=== PATIENT | female | born 1970 | race Caucasian/White ===

== ENCOUNTER 2018-01-07 22:17 | Emergency (ER) | payer MEDICARE ==
--- NOTE | 2018-01-07 23:04 | ERPHSYRPT ---
- History of Present Illness Time Seen by Provider: 01/07/18 22:58 Source: patient Exam Limitations: no limitations Patient Subjective Stated Complaint: pt has been falling lately, fell today, Triage Nursing Assessment: pt A&O x3, pt states that she has been falling lately and has fallen again today, stated that she is losing her balance, no difficulties with strength, lungs clear, pulses normal, vitals wnl, PERRL, orthostatics normal, no wounds, doesn't appear to be in any distress Physician History: 47-year-old morbidly obese white female with history of asthma, pulmonary embolism, anxiety, depression, DVT of the right leg, morbid obesity arrives with complaints of fell at home proximally 15 minutes prior to arrival patient states that she was moving some clothes and fell backwards she states she did not hit her head or lose consciousness. Patient's states that she has been losing her balance lately and falling Patient has pain in bilateral upper arms Patient denies any chest pain denies any other injury she is not short of breath She denies any neck pain Past medical history includes asthma, pulmonary embolism, hypothyroidism, anxiety, depression, DVT right leg, morbid obesity Past surgical history includes , left kidney removed, D&C 2 Patient states she has had menopause and denies Timing/Duration: today (fell just prior to arrival patient's states that she's had frequent falls over the last month) Severity: mild Modifying Factors: Improves With: nothing Associated Symptoms: other (frequent falls, bilateral arm pain), No nausea, No vomiting, No abdominal pain, No shortness of breath, No heartburn, No diaphoresis, No cough, No chills, No chest pain, No fever, No headaches, No loss of appetite, No malaise, No rash, No syncope, No seizure, No weakness Allergies/Adverse Reactions: codeine Allergy (Mild, Verified 08/08/15 18:12) Penicillins Allergy (Verified 01/07/18 22:56) Home Medications: Alprazolam 0.5 mg [xanAX 0.5 MG] 0.5 mg PO QID 03/31/13 [History] Albuterol Sulfate [Albuterol Sulfate Hfa] 2 puff IH QID 05/18/15 [History] Budesonide/Formoterol Fumarate [Symbicort 160-4.5 Mcg Inhaler] 2 puff IH BID 07/22 [History] Ipratropium/Albuterol Sulfate [Combivent Inhaler] 1 puff IH QID 05/18/15 [ History] Levothyroxine Sodium 50 Mcg [Synthroid 50 Mcg] 50 mcg PO DAILY 05/18/15 [ History] PARoxetine HCl [Paroxetine HCl] 40 mg PO DAILY 05/18/15 [History] Simvastatin 5 mg PO HS 05/18/15 [History] Solifenacin Succinate [Vesicare] 5 mg PO DAILY 05/18/15 [History] Fenofibrate,Micronized 145 mg* [Tricor 145 MG] 54 mg PO DAILY 08/08/15 [ History] Folic Acid 20 mg PO DAILY 08/08/15 [History] Multivit with Calcium,Iron,Min [Womens Multiple Vitamins] 1 each PO DAILY [History] Hx Tetanus, Diphtheria Vaccination/Date Given: Yes Hx Influenza Vaccination/Date Given: Yes Hx Pneumococcal Vaccination/Date Given: No - Review of Systems Constitutional: No Fever, No Chills Eyes: No Symptoms Ears, Nose, & Throat: No Symptoms Respiratory: No Cough, No Dyspnea Cardiac: No Chest Pain, No Edema, No Syncope Abdominal/Gastrointestinal: No Abdominal Pain, No Nausea, No Vomiting, No Diarrhea Genitourinary Symptoms: No Dysuria Musculoskeletal: Other (bilateral upper arm pain) Skin: No Rash Neurological: Dizziness (patient told the patient's nurse she was dizzy prior to falling.), Other (frequent falls for one month), No Focal Weakness, No Gait Changes, No Headache, No Irritability, No Lethargy, No Paralysis, No Parasthesia , No Seizure, No Sensory Changes, No Speech Changes, No Tics, No Tremors, No Vertigo Psychological: Alcohol Abuse Endocrine: No Symptoms All Other Systems: Reviewed and Negative - Past Medical History Pertinent Past Medical History: Yes Neurological History: No Pertinent History ENT History: No Pertinent History Cardiac History: Deep Vein Thrombosis, High Cholesterol Respiratory History: Asthma Endocrine Medical History: Diabetes Type II Musculoskeletal History: Arthritis GI Medical History: No Pertinent History History: Other Psycho-Social History: Anxiety, Depression Female Reproductive Disorders: No Pertinent History Other Medical History: 2003 L kidney removed. History of blood clots, notes present one in one of her legs. History of PE. 2L O2. - Past Surgical History Past Surgical History: Yes Neuro Surgical History: No Pertinent History Cardiac: No Pertinent History Respiratory: No Pertinent History Gastrointestinal: No Pertinent History Genitourinary: Other Musculoskeletal: No Pertinent History Female Surgical History: Section, Other Other Surgical History: LEFT KIDNEY REMOVAL-2004, D/C x 2 - Social History Smoking Status: Never smoker Exposure to second hand smoke: Yes Drug Use: none Patient Lives Alone: No - Female History Hx Last Menstrual Period: 13 years Hx Now: No (menopause) - Nursing Vital Signs Nursing Vital Signs: Initial Vital Signs Temperature 98.1 F 01/07/18 22:36 Pulse Rate 75 01/07/18 22:36 Blood Pressure 147/66 01/07/18 22:36 O2 Sat by Pulse Oximetry 94 L 01/07/18 22:36 Pain Scale Pain Intensity 5 - Physical Exam General Appearance: no apparent distress, alert Eye Exam: PERRL/EOMI, eyes nml inspection Ears, Nose, Throat Exam: normal ENT inspection, TMs normal, pharynx normal, moist mucous membranes Neck Exam: normal inspection, non-tender, supple, full range of motion Respiratory Exam: normal breath sounds, lungs clear, No respiratory distress Cardiovascular Exam: regular rate/rhythm, normal heart sounds, normal peripheral pulses Gastrointestinal/Abdomen Exam: soft, normal bowel sounds, No tenderness, No mass Back Exam: normal inspection, normal range of motion, No CVA tenderness, No vertebral tenderness Extremity Exam: normal inspection, normal range of motion, pelvis stable, other (full range of motion to all extremitie oceanographic meteorologist equal and symmetrical 5 over 5) Neurologic Exam: alert, oriented x 3, cooperative, normal mood/affect, nml cerebellar function, nml station & gait, sensation nml, other (patient alert, oriented 3, normal finger to nose, oceanographic meteorologist equal and symmetrical 5 over 5 no facial droop speech normal GCS 15,no pronator drift, sensation intact to all extremities cranial nerves II through XII int), No motor deficits, No sensory deficit, No disoriented, No confusion, No uncooperative, No intoxicated appearance, No depressed mood/affect, No motor weakness, No facial droop, No slurred speech, No aphasia, No abnormal cerebellar tests, No abnormal 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-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 SpO2 Interpretation: normal (94%) SpO2: 94 - Course Nursing assessment & vital signs reviewed: Yes EKG Interpreted by Me: RATE (68 bpm), Sinus Rhythm, NORMAL AXIS, Other (EKG: Normal sinus rhythm, 68 beats per minute, normal axis, no acute ST or T wave changes) - Radiology Exams Left Humerus X-ray Interpretation: Interpreted by me, Negative, No Fracture, No Subluxation Right Humerus X-ray Interpretation: Interpreted by me, Negative, No Fracture, No Subluxation - CT Exams Head CT Interpretation: Negative, Tele-radiologist Report (no acute findings) Ordered Tests: Active Orders 24 hr Category Date Time Status EKG-ER Only STAT Care 01/07/18 22:55 Active IV Insertion STAT Care 01/07/18 22:55 Active HEAD WITHOUT CONTRAST [CT] Stat Exams 01/07/18 22:56 Taken HUMERUS Stat Exams 01/07/18 23:08 Taken HUMERUS Stat Exams 01/07/18 23:08 Taken AMYLASE Stat Lab 01/07/18 00:05 Completed CBC W DIFF Stat Lab 01/07/18 00:05 Completed CMP Stat Lab 01/07/18 00:05 Completed LIPASE Stat Lab 01/07/18 00:05 Completed TROPONIN Q3H Lab 01/07/18 00:05 Completed TROPONIN Q3H Lab 01/08/18 02:00 Ordered TROPONIN Q3H Lab 01/08/18 05:00 Ordered TROPONIN Q3H Lab 01/08/18 08:00 Ordered TROPONIN Q3H Lab 01/08/18 11:00 Ordered Lab/Rad Data: Laboratory Result Diagrams 01/07/18 00:05 01/07/18 00:05 Laboratory Results 01/07/18 01/07/18 01/07/18 Range/Units 00:05 00:05 00:05 WBC 7.5 (4.0-10.5) K/mm3 RBC 3.89 L (4.1-5.4) M/mm3 Hgb 11.7 L (12.0-16.0) gm/dl Hct 36.8 (35-47) % MCV 94.6 (78-100) fl MCH 30.0 (26-32) pg MCHC 31.8 L (32-36) g/dl RDW 14.0 (11.5-14.0) % Plt Count 189 (150-450) K/mm3 MPV 11.3 H (6-9.5) fl Gran % 62.6 (36.0-66.0) % Eos # (Auto) 0.14 (0-0.5) Absolute Lymphs (auto) 1.91 (1.0-4.6) Absolute Monos (auto) 0.76 (0.0-1.3) Lymphocytes % 25.3 (24.0-44.0) % Monocytes % 10.1 (0.0-12.0) % Eosinophils % 1.9 (0.00-5.0) % Basophils % 0.1 (0.0-0.4) % Absolute Granulocytes 4.72 (1.4-6.9) Basophils # 0.01 (0-0.4) Sodium 143 (137-145) mmol/L Potassium 4.3 (3.5-5.1) mmol/L Chloride 100 (98-107) mmol/L Carbon Dioxide 32 H (22-30) mmol/L Anion Gap 15.9 H (5-15) MEQ/L BUN 21 H (7-17) mg/dL Creatinine 1.00 (0.52-1.04) mg/dL Estimated GFR > 60.0 ML/MIN Glucose 119 H (74-106) mg/dL Calcium 9.7 (8.4-10.2) mg/dL Total Bilirubin 0.30 (0.2-1.3) mg/dL AST 26 (14-36) U/L ALT 24 (0-35) U/L Alkaline Phosphatase 74 (38-126) U/L Troponin I < 0.012 (0.000-0.034) ng/mL Serum Total Protein 7.7 (6.3-8.2) g/dL Albumin 4.2 (3.5-5.0) g/dL Amylase 48 (30-110) U/L Lipase 177 (23-300) U/L - Progress Progress: improved Progress Note: 01/07/18 23:04 This is a 47-year-old morbidly obese white female with history of asthma, pulmonary embolism, hypothyroidism, anxiety, depression with a history of DVT of right leg. Patient arrives with complaint of bilateral arm pain after falling at home patient states this occurred just prior to arrival she states she lost her balance and fell backwards while moving closing she denies any loss of consciousness she denies hitting her head. Both order both state that she's been falling frequently over the last month. She has bilateral arm pain she has no chest pain shortness of breath she denies any other injuries. She has a completely normal neurological workup. Patient denies any neck pain. On physical examination patient was essentially normal workup with the exception of being morbidly obese HEENT within normal limits lungs are clear heart is regular abdomen soft nontender nondistended positive bowel sounds extremities full range of motion pulse equal symmetrical 2 over 4 neuro cranial nerves II through XII are intact DTRs symmetrical 2 over 4 [place] Coma Scale is 15 sensation intact to all extremities. Patient does complain of bilateral arm pain however I find no focal findings. Because of the patient's history of a falling frequently over the last month or so will go ahead and obtain CT of the patient's head she does have a history of DVT in the past Will go ahead and get EKG CBC CMP troponin on this patient. Will go ahead and obtain x-ray of the patient's bilateral humerus. . 01/08/18 00:50 Patient's labs are essentially normal with the exception of a anion gap of 15.9 and a BUN of 21 EKG is normal head CT is normal x-ray bilateral humerus are normal Troponin is within normal limits. Patient states she still has some pain on her arms. Will give her one Maysel tablet. I'm reluctant to give the patient continuing Maysel because she is on Xanax at home and fearful of interaction I have recommended Tylenol she states "that never works". Will give patient one Maysel tablet orally here in the emergency room patient is to return home rest. I have offered repeat troponin on this patient she does not want to stay and have this done.. . . - Departure Time of Disposition: 00:51 Departure Disposition: Home Clinical Impression: recent frequent falls, Bilateral arm pain Accidental fall Qualifiers: Encounter type: initial encounter Qualified Code(s): W19.XXXA - Unspecified fall, initial encounter Condition: Fair Critical Care Time: No Referrals: EDUARDO CORRAL [Primary Care Provider] - Instructions: Preventing Falls Additional Instructions: Return home. Plenty of fluids. Medications as prescribed by your family doctor. Follow-up with your family doctor call in the morning and make an appointment for recheck. Return for acute distress or for severe symptoms. Tylenol every 4 hours as needed for pain.
[2018-01-08 00:15] LABS: BASOPHIL % 0.1 % (0.0-0.4); Basophil (Absolute #) 0.01 (0-0.4); Eosinophil % 1.9 % (0.00-5.0); Eosinophil (Absolute #) 0.14 (0-0.5); Granulocyte Absolute (ANC) 4.72 (1.4-6.9); Granulocytes % 62.6 % (36.0-66.0); Hematocrit 36.8 % (35-47); Hemoglobin 11.7 gm/dl (12.0-16.0); Lymphocyte (Absolute #) 1.91 (1.0-4.6); Lymphocytes % 25.3 % (24.0-44.0); Mean Cell Volume 94.6 fl (78-100); Mean Corpuscular Hgb Concent. 31.8 g/dl (32-36); Mean Platelet Volume 11.3 fl (6-9.5); Monocyte (Absolute #) 0.76 (0.0-1.3); Monocytes % 10.1 % (0.0-12.0); Platelet Count 189 K/mm3 (150-450); Red Blood Count 3.89 M/mm3 (4.1-5.4); White Blood Count 7.5 K/mm3 (4.0-10.5)
[2018-01-08 00:31] LABS: ALBUMIN 4.2 g/dL (3.5-5.0); ALKALINE PHOSPHATASE 74 U/L (38-126); AMYLASE 48 U/L (30-110); ANION GAP 15.9 MEQ/L (5-15); BLOOD UREA NITROGEN 21 mg/dL (7-17); CHLORIDE 100 mmol/L (98-107); Calcium 9.7 mg/dL (8.4-10.2); Carbon Dioxide 32 mmol/L (22-30); Glucose 119 mg/dL (74-106); LIPASE 177 U/L (23-300); Potassium 4.3 mmol/L (3.5-5.1); SGOT/AST 26 U/L (14-36); SGPT/ALT 24 U/L (0-35); SODIUM 143 mmol/L (137-145); Total Protein 7.7 g/dL (6.3-8.2)
[2018-01-08] MEDS: NORCO 5/325 MG PO ONE (01:00)
[2018-01-08] MEDS ORDERED: NORCO 5/325 MG ONE (01:00)
[2018-01-08 01:01] VITALS: BP 148/67; PULSE 76; O2SAT 96
--- NOTE | 2018-01-08 08:41 | XRAY ---
Indication: Pain following fall. Multiple contiguous axial images obtained through the head without contrast. Comparison: October 21, 2016. Again normal appearing brain parenchyma, ventricles, and bony calvarium. Visualized paranasal sinuses and mastoid air cells are clear. Impression: Stable normal CT head without contrast exam. Comment: Preliminary interpretation was made by [facility]. No discrepancy. CT DI 50.14
--- NOTE | 2018-01-08 08:43 | XRAY ---
Indication: Pain following fall. Comparison: None 2 views of the left humerus demonstrates minimal AC degenerative arthropathy. No other bony, articular, or soft tissue abnormalities.
--- NOTE | 2018-01-08 08:43 | XRAY ---
Indication: Pain following fall. Comparison: None 2 views of the right humerus demonstrates mild AC and moderate glenohumeral degenerative arthropathy. No other bony, articular, or soft tissue abnormalities.
== END 2018-01-08 01:27 | disposition home or self-care (01) ==
LOC: ED 22:17
DX: M79.602 Pain in left arm (principal); M79.601 Pain in right arm; R42 Dizziness and giddiness; W19.XXXA Unspecified fall, initial encounter; Z91.81 History of falling; Z79.899 Other long term (current) drug therapy; Z86.711 Personal history of pulmonary embolism
CPT/HCPCS: 36000; 36415; 70450; 73060; 80053; 82150; 83690; 84484; 85025; 93005; 99284; A9270-GY

== ENCOUNTER 2019-04-15 14:27 | Emergency (ER) | payer MEDICARE ==
[2019-04-15 14:41] LABS: A-aADO2 60; ABG HEMOGLOBIN 10.1; ABG POTASSIUM 3.5 (3.5-5.1); ABG SITE RIGHT RADIAL; ALLEN TEST OK? YES; ARTERIAL BLOOD GAS BASE EXCESS 5.6 (-2.0-2.0); ARTERIAL BLOOD GAS FIO2 28 %; ARTERIAL BLOOD GAS PCO2 33 mmHg (35-45); ARTERIAL BLOOD GAS PO2 98 mmHg (75-100); ARTERIAL BLOOD GAS pH 7.54 (7.35-7.45); CARBOXYHEMOGLOBIN 1.8 % THgb (0.0-6.9); HCO3- 28.2 (22-28); HGB O2 SAT 96.4 g/dF (94-100); Methhemoglobin 0.8 % (1.4-1.5); paO2 pAO1 0.62
--- NOTE | 2019-04-15 14:54 | ERPHSYRPT ---
- History of Present Illness Time Seen by Provider: 04/15/19 14:42 Source: patient, EMS Exam Limitations: no limitations Patient Subjective Stated Complaint: Pt states "I have had trouble breathing for past week or so." Triage Nursing Assessment: Pt presented via [facility] and placed in room 7. PT alert and oriented X 3, skin pwd. Pt speakin in two to 3 word sentences. PT has had previous stroke and her speech was delayed with gasping for breath after 3 to 4 words. Physician History: 49-year-old white female arrives with complaint of shortness of breath x2 weeks no chest pain no fevers. Patient given albuterol and duo neb treatment prior to arrival. Past medical history includes CVA, DVT, hyperlipidemia, asthma, old chart shows diabetes type 2 patient denies this, arthritis, anxiety, depression, left kidney removed, blood clots in her legs, pulmonary embolism Past surgical history includes , left kidney removed, D&C Timing/Duration: week(s) (22 weeks) Activities at Onset: none Severity of Dyspnea-Max: moderate Severity of Dyspnea-Current: moderate Possible Cause: occasional episodes Modifying Factors: Improves With: nothing Associated Symptoms: constant, cough, wheezing, No intermittent, No anxiety, No chest pain/discomfort, No edema, No fever, No insomnia, No loss of appetite, No lightheadedness, No weakness, No ankle swelling, No chills, No hemoptysis, No calf pain, No dizziness, No heaviness, No heart racing, No lightheadedness, No leg swelling, No muscle spasms feet, No muscle spasms hands, No painful breathing, No productive cough, No sweating, No tightness, No tingling face International travel in last 2 weeks: No Allergies/Adverse Reactions: tramadol Allergy (Severe, Verified 04/15/19 14:37) Rash codeine Allergy (Mild, Verified 08/08/15 18:12) Penicillins Allergy (Verified 01/07/18 22:56) Home Medications: Alprazolam 0.5 mg [xanAX 0.5 MG] 0.5 mg PO QID 03/31/13 [History] Albuterol Sulfate [Albuterol Sulfate Hfa] 2 puff IH QID 05/18/15 [History] Budesonide/Formoterol Fumarate [Symbicort 160-4.5 Mcg Inhaler] 2 puff IH BID 07/22 [History] Ipratropium/Albuterol Sulfate [Combivent Inhaler] 1 puff IH QID 05/18/15 [ History] Levothyroxine Sodium 50 Mcg [Synthroid 50 Mcg] 50 mcg PO DAILY 05/18/15 [ History] PARoxetine HCl [Paroxetine HCl] 40 mg PO DAILY 05/18/15 [History] Simvastatin 5 mg PO HS 05/18/15 [History] Solifenacin Succinate [Vesicare] 5 mg PO DAILY 05/18/15 [History] Fenofibrate,Micronized 145 mg* [Tricor 145 MG] 54 mg PO DAILY 08/08/15 [ History] Folic Acid 20 mg PO DAILY 08/08/15 [History] Multivit with Calcium,Iron,Min [Womens Multiple Vitamins] 1 each PO DAILY [History] Hx Tetanus, Diphtheria Vaccination/Date Given: Yes Hx Influenza Vaccination/Date Given: Yes Hx Pneumococcal Vaccination/Date Given: Yes Immunizations Up to Date: Yes - Review of Systems Constitutional: No Fever, No Chills Eyes: No Symptoms Ears, Nose, & Throat: No Symptoms Respiratory: Cough, Dyspnea, Wheezing Cardiac: No Chest Pain, No Edema, No Syncope Abdominal/Gastrointestinal: No Abdominal Pain, No Nausea, No Vomiting, No Diarrhea Genitourinary Symptoms: No Dysuria Musculoskeletal: No Back Pain, No Neck Pain Skin: No Rash Neurological: No Dizziness, No Focal Weakness, No Sensory Changes Psychological: No Symptoms Endocrine: No Symptoms All Other Systems: Reviewed and Negative - Past Medical History Pertinent Past Medical History: Yes Neurological History: No Pertinent History ENT History: No Pertinent History Cardiac History: Deep Vein Thrombosis, High Cholesterol Respiratory History: Asthma Endocrine Medical History: Diabetes Type II Musculoskeletal History: Arthritis GI Medical History: No Pertinent History History: Other Psycho-Social History: Anxiety, Depression Female Reproductive Disorders: No Pertinent History Other Medical History: 2003 L kidney removed. History of blood clots, notes present one in one of her legs. History of PE. 2L O2. - Past Surgical History Past Surgical History: Yes Neuro Surgical History: No Pertinent History Cardiac: No Pertinent History Respiratory: No Pertinent History Gastrointestinal: No Pertinent History Genitourinary: Other Musculoskeletal: No Pertinent History Female Surgical History: Section, Other Other Surgical History: LEFT KIDNEY REMOVAL-2004, D/C x 2 - Social History Smoking Status: Never smoker Exposure to second hand smoke: Yes Drug Use: none Patient Lives Alone: No - Female History Hx Last Menstrual Period: menopause Hx Now: No - Nursing Vital Signs Nursing Vital Signs: Initial Vital Signs Temperature 98.2 F 04/15/19 14:28 Pulse Rate 115 H 04/15/19 14:28 Respiratory Rate 26 H 04/15/19 14:28 Blood Pressure 156/102 04/15/19 14:28 O2 Sat by Pulse Oximetry 99 04/15/19 14:28 Pain Scale Pain Intensity 0 and in - Physical Exam General Appearance: mild distress, alert Eye Exam: PERRL/EOMI Ears, Nose, Throat Exam: No normal ENT inspection, No normal pharynx, No abnormal TM (R), No abnormal TM (L) Neck Exam: normal inspection, supple Respiratory Exam: diminished breath sounds Cardiovascular/Chest Exam: normal heart sounds, regular rate/rhythm Abdominal/Gastrointestinal Exam: soft, No tenderness, No distention, No mass Extremity Exam: non-tender, normal range of motion, normal inspection, no calf tenderness, no pedal edema Peripheral Pulses Exam: dorsalis-pedis (R): 2+, dorsalis-pedis (L): 2+ Neurologic Exam: alert, oriented x 3, cooperative, 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 II-XII nml as tested, sensation nml, No motor deficits Skin Exam: normal color, warm, No dry SpO2 Interpretation: normal (97%) SpO2: 97 - Course Nursing assessment & vital signs reviewed: Yes EKG Interpreted by Me: RATE (100 bpm), NORMAL AXIS, Other (EKG: Sinus rhythm, 100 beats per minute, normal axis, no acute ST or T wave changes noted) - Radiology Exams Chest X-ray Interpretation: Discussed w/ radiologist (chest x-ray: Under inflated nonacute chest) Ordered Tests: Active Orders 24 hr Category Date Time Status EKG-ER Only STAT Care 04/15/19 14:49 Active Pulse Oximetry (ED) STAT Care 04/15/19 14:46 Active CHEST 1 VIEW (PORTABLE) Stat Exams 04/15/19 14:47 Completed ABG [ARTERIAL BLOOD GASES] Stat Lab 04/15/19 14:31 Completed BLOOD CULTURE Stat Lab 04/15/19 15:45 Received CBC W DIFF Stat Lab 04/15/19 15:00 Completed CMP Stat Lab 04/15/19 15:00 Completed D-DIMER QUANTITATION Stat Lab 04/15/19 15:00 Completed HCG QUALITATIVE,SERUM Stat Lab 04/15/19 15:00 Completed NT PRO BNP Stat Lab 04/15/19 15:00 Completed PROTIME WITH INR Stat Lab 04/15/19 15:00 Completed PTT Stat Lab 04/15/19 15:00 Completed TROPONIN Q3H Lab 04/15/19 15:00 Completed TROPONIN Q3H Lab 04/15/19 18:00 Ordered TROPONIN Q3H Lab 04/15/19 21:00 Ordered TROPONIN Q3H Lab 04/16/19 00:00 Ordered TROPONIN Q3H Lab 04/16/19 03:00 Ordered Medication Summary Discontinued Medications Generic Name Dose Route Start Last Admin Trade Name Freq PRN Reason Stop Dose Admin Azithromycin 500 mg 04/15/19 18:18 04/15/19 18:22 Zithromax 250 Mg Tablet PO 04/15/19 18:19 500 mg STAT ONE Administration Azithromycin Confirm 04/15/19 18:20 Zithromax 250 Mg Tablet Administered 04/15/19 18:21 Dose 500 mg .ROUTE .STK-MED ONE Bacitracin Zinc 0.9 gm 04/15/19 17:30 04/15/19 17:35 Baciguent Packet TP 04/15/19 17:31 Not Given STAT ONE Methylprednisolone Sodium Succinate 125 mg 04/15/19 18:18 04/15/19 18:22 Solu-Medrol 125 Mg IV 04/15/19 18:19 125 mg STAT ONE Administration Methylprednisolone Sodium Succinate Confirm 04/15/19 18:20 Solu-Medrol 125 Mg Administered 04/15/19 18:21 Dose 125 mg .ROUTE .STK-MED ONE Lab/Rad Data: Laboratory Result Diagrams 04/15/19 15:00 04/15/19 15:00 Laboratory Results 04/15/19 04/15/19 04/15/19 Range/Units 15:00 15:00 15:00 WBC (4.0-10.5) K/mm3 RBC (4.1-5.4) M/mm3 Hgb (12.0-16.0) gm/dl Hct (35-47) % MCV (78-100) fl MCH (26-32) pg MCHC (32-36) g/dl RDW (11.5-14.0) % Plt Count (150-450) K/mm3 MPV (6-9.5) fl Gran % (36.0-66.0) % Eos # (Auto) (0-0.5) Absolute Lymphs (auto) (1.0-4.6) Absolute Monos (auto) (0.0-1.3) Lymphocytes % (24.0-44.0) % Monocytes % (0.0-12.0) % Eosinophils % (0.00-5.0) % Basophils % (0.0-0.4) % Absolute Granulocytes (1.4-6.9) Basophils # (0-0.4) PT 19.0 H (9.95-12.35) SECONDS INR 1.66 (0.8-3.0) APTT 37.9 H (25.3-37.0) SECONDS D-Dimer 881 H* (215-500) ng/mL Puncture Site pCO2 (35-45) mmHg pO2 (75-100) mmHg Base Excess (-2.0-2.0) O2 Saturation (94-100) g/dF ABG pH (7.35-7.45) ABG HCO3 (22-28) ABG O2 Sat (Measured) (95-100) % Pete Test A-a Gradient a/A Ratio Hemoglobin Carboxyhemoglobin (0.0-6.9) % THgb Methemoglobin (1.4-1.5) % Potassium (3.5-5.1) Temperature C POC O2 Flow Rate % Sodium (137-145) mmol/L Chloride (98-107) mmol/L Carbon Dioxide (22-30) mmol/L Anion Gap (5-15) MEQ/L BUN (7-17) mg/dL Creatinine (0.52-1.04) mg/dL Estimated GFR ML/MIN Glucose (74-106) mg/dL Calcium (8.4-10.2) mg/dL Total Bilirubin (0.2-1.3) mg/dL AST (14-36) U/L ALT (0-35) U/L Alkaline Phosphatase (38-126) U/L Troponin I 0.017 (0.000-0.034) ng/mL NT-Pro-B Natriuret Pep (0-900) pg/mL Serum Total Protein (6.3-8.2) g/dL Albumin (3.5-5.0) g/dL Serum , Qual NEGATIVE (Negative) 04/15/19 04/15/19 04/15/19 Range/Units 15:00 15:00 14:31 WBC 6.3 (4.0-10.5) K/mm3 RBC 3.20 L (4.1-5.4) M/mm3 Hgb 9.7 L (12.0-16.0) gm/dl Hct 32.3 L (35-47) % MCV 100.9 H (78-100) fl MCH 30.3 (26-32) pg MCHC 30.0 L (32-36) g/dl RDW 13.8 (11.5-14.0) % Plt Count 117 L (150-450) K/mm3 MPV 11.9 H (6-9.5) fl Gran % 69.1 H (36.0-66.0) % Eos # (Auto) 0.18 (0-0.5) Absolute Lymphs (auto) 1.15 (1.0-4.6) Absolute Monos (auto) 0.60 (0.0-1.3) Lymphocytes % 18.3 L (24.0-44.0) % Monocytes % 9.5 (0.0-12.0) % Eosinophils % 2.9 (0.00-5.0) % Basophils % 0.2 (0.0-0.4) % Absolute Granulocytes 4.36 (1.4-6.9) Basophils # 0.01 (0-0.4) PT (9.95-12.35) SECONDS INR (0.8-3.0) APTT (25.3-37.0) SECONDS D-Dimer (215-500) ng/mL Puncture Site RIGHT RADIAL pCO2 33 L (35-45) mmHg pO2 98 (75-100) mmHg Base Excess 5.6 H (-2.0-2.0) O2 Saturation 96.4 (94-100) g/dF ABG pH 7.54 H (7.35-7.45) ABG HCO3 28.2 H (22-28) ABG O2 Sat (Measured) 99.0 (95-100) % Pete Test YES A-a Gradient 60 a/A Ratio 0.62 Hemoglobin 10.1 Carboxyhemoglobin 1.8 (0.0-6.9) % THgb Methemoglobin 0.8 L (1.4-1.5) % Potassium 3.7 3.5 (3.5-5.1) Temperature 37.0 C POC O2 Flow Rate 28 % Sodium 147 H (137-145) mmol/L Chloride 107 (98-107) mmol/L Carbon Dioxide 30 (22-30) mmol/L Anion Gap 12.9 (5-15) MEQ/L BUN 12 (7-17) mg/dL Creatinine 1.03 (0.52-1.04) mg/dL Estimated GFR > 60.0 ML/MIN Glucose 108 H (74-106) mg/dL Calcium 9.6 (8.4-10.2) mg/dL Total Bilirubin 0.60 (0.2-1.3) mg/dL AST 26 (14-36) U/L ALT 15 (0-35) U/L Alkaline Phosphatase 61 (38-126) U/L Troponin I (0.000-0.034) ng/mL NT-Pro-B Natriuret Pep 1990 H (0-900) pg/mL Serum Total Protein 7.8 (6.3-8.2) g/dL Albumin 4.2 (3.5-5.0) g/dL Serum , Qual (Negative) - Progress Progress: improved Air Movement: fair Progress Note: 04/15/19 18:18 Patient better after receiving a DuoNeb and albuterol treatments per medics she is in no acute distress patient with normal ABGs. Patient with mild elevation of BNP however chest x-ray shows no evidence of failure patient's chest x-ray no acute. Disease process Patient's EKG sinus rhythm 100 beats per minute normal axis no acute ST or T wave changes. Patient with a essentially normal chemistry and CBC white cells 6.3 hemoglobin 9.7 hematocrit 32.3 Unfortunately patient's d-dimer was 8[address] I had considered ordering CT in this patient's chest however patient does not show signs of pulmonary embolism and she only has one kidney./ She has a good oxygenation, good ABGs good EKG normal looking chest she's not having chest pain. I've discussed the case with Dr. Morrissey optical fabrication technician for Dr. Meaghan Corral. Will go ahead and give patient Solu-Medrol 125 mg orally will give patient Zithromax 500 mg and sent home with 250 per day for 4 days. Will insure that patient has an inhaler at home. Patient to followup with Dr. Corral. - Departure Departure Disposition: Home Clinical Impression: Shortness of breath Asthma with exacerbation Qualifiers: Asthma severity: moderate Asthma persistence: unspecified Qualified Code(s): J45.901 - Unspecified asthma with (acute) exacerbation Condition: Fair Critical Care Time: No Referrals: EDUARDO CORRAL [Primary Care Provider] - Instructions: Asthma, Adult (DC) Additional Instructions: Return home. Plenty of fluids. Zithromax 250 mg orally daily for 4 days. Prednisone taper as prescribed. Followup with Dr. Corral. Return for acute distress or for severe symptoms. Prescriptions: Azithromycin 250 mg [Zithromax 250 MG TABLET] 250 mg PO DAILY #4 tablet
--- NOTE | 2019-04-15 15:12 | XRAY ---
Indication: Chest pain and short of breath. Comparison: May 18, 2015. Portable chest underinflated without focal infiltrate, consolidation, or large effusion. Heart upper limits normal for AP portable technique. Bony thorax intact. Impression: Again nonacute underinflated chest.
[2019-04-15 15:44] LABS: INR 1.66 (0.8-3.0)
[2019-04-15 15:47] LABS: PTT 37.9 SECONDS (25.3-37.0)
[2019-04-15 15:48] LABS: BASOPHIL % 0.2 % (0.0-0.4); Basophil (Absolute #) 0.01 (0-0.4); Eosinophil % 2.9 % (0.00-5.0); Eosinophil (Absolute #) 0.18 (0-0.5); Granulocyte Absolute (ANC) 4.36 (1.4-6.9); Granulocytes % 69.1 % (36.0-66.0); Hematocrit 32.3 % (35-47); Hemoglobin 9.7 gm/dl (12.0-16.0); Lymphocyte (Absolute #) 1.15 (1.0-4.6); Lymphocytes % 18.3 % (24.0-44.0); Mean Cell Volume 100.9 fl (78-100); Mean Corpuscular Hemoglobin 30.3 pg (26-32); Mean Platelet Volume 11.9 fl (6-9.5); Monocytes % 9.5 % (0.0-12.0); Platelet Count 117 K/mm3 (150-450); Red Cell Distribution Width 13.8 % (11.5-14.0); White Blood Count 6.3 K/mm3 (4.0-10.5)
[2019-04-15 15:58] LABS: ALBUMIN 4.2 g/dL (3.5-5.0); ALKALINE PHOSPHATASE 61 U/L (38-126); ANION GAP 12.9 MEQ/L (5-15); BLOOD UREA NITROGEN 12 mg/dL (7-17); CHLORIDE 107 mmol/L (98-107); Calcium 9.6 mg/dL (8.4-10.2); Carbon Dioxide 30 mmol/L (22-30); Creatinine 1 1.03 mg/dL (0.52-1.04); Glucose 108 mg/dL (74-106); NT PRO BNP 1990 pg/mL (0-900); Potassium 3.7 mmol/L (3.5-5.1); SGOT/AST 26 U/L (14-36); SGPT/ALT 15 U/L (0-35); SODIUM 147 mmol/L (137-145); Total Protein 7.8 g/dL (6.3-8.2)
[2019-04-15] MEDS ORDERED: BACIGUENT PACKET TP ONE (17:30)
[2019-04-15 17:57] VITALS: BP 100/80; PULSE 101
[2019-04-15 18:05] VITALS: O2SAT 97
[2019-04-15] MEDS ORDERED: Zithromax 250 MG TABLET PO ONE (18:18)
[2019-04-15] MEDS ORDERED: solu-MEDROL 125 MG IV ONE (18:18)
[2019-04-15] MEDS ORDERED: Zithromax 250 MG TABLET ONE (18:20)
[2019-04-15] MEDS ORDERED: solu-MEDROL 125 MG ONE (18:20)
== END 2019-04-15 18:36 | disposition home or self-care (01) ==
LOC: ED 14:27
DX: R06.02 Shortness of breath (principal); J45.901 Unspecified asthma with (acute) exacerbation
CPT/HCPCS: 36000; 36415; 36600; 71045; 80053; 81025; 82375; 82803; 83880; 84484; 85025; 85379; 85610; 85730; 87040; 93005; 94760; 96374; 99284; J2930; A9270-GY

== ENCOUNTER 2022-06-21 20:51 | Observation (INO) | payer MEDICARE ==
[2022-06-21] MEDS ORDERED: FEVERALL 650 MG PR ONE (21:14)
[2022-06-21] MEDS ORDERED: FEVERALL 650 MG ONE (21:18)
[2022-06-21] MEDS ORDERED: DUONEB 0.5-3 MG/3 ml Neb IH ONE ×2 (21:27→21:33)
[2022-06-21] MEDS ORDERED: solu-MEDROL 125 MG, Sterile H2O 10 ml 2 ML IV ONE ×2 (21:27)
[2022-06-21] MEDS ORDERED: Zofran 4 MG/2 ML VIAL IV ONE (21:29)
[2022-06-21] MEDS ORDERED: PROTONIX 40 MG IV IV ONE ×2 (21:30→21:45)
[2022-06-21 21:36] LABS: INFLUENZA A NEGATIVE (NEGATIVE); INFLUENZA B NEGATIVE (NEGATIVE); RESPIRATORY SYNCTIAL VIRUS NEGATIVE (Negative); SARS-CoV-2 Xpert Express NEGATIVE (NEGATIVE)
[2022-06-21 21:41] LABS: Absolute Neutrophil Ct (ANC) 10.68 x10^3/uL (1.4-6.9); Basophil (Absolute #) 0.03 x10^3/uL (0-0.4); Eosinophil % 0.2 % (0.00-5.0); Eosinophil (Absolute #) 0.02 x10^3/uL (0-0.5); Hematocrit 41.7 % (35-47); Lymphocyte (Absolute #) 0.76 x10^3/uL (1.0-4.6); Mean Cell Volume 98.3 fL (78-100); Mean Corpuscular Hemoglobin 30.7 pg (26-32); Mean Corpuscular Hgb Concent. 31.2 g/dL (32-36); Mean Platelet Volume 11.9 fL (7.5-11.0); Monocyte (Absolute #) 1.04 x10^3/uL (0.0-1.3); Monocytes % 8.2 % (0.0-12.0); Neutrophil % 84.5 % (36.0-66.0); Platelet Count 123 x10^3/uL (150-450); Red Blood Count 4.24 x10^6/uL (4.1-5.4); Red Cell Distribution Width 11.9 % (11.5-14.0); White Blood Count 12.7 x10^3/uL (4.0-10.5)
[2022-06-21] MEDS ORDERED: Zofran 4 MG/2 ML VIAL ONE (21:45)
[2022-06-21] MEDS ORDERED: solu-MEDROL ONE (21:45)
[2022-06-21] MEDS ORDERED: Sterile H2O 10 ml IJ ONE (21:45)
[2022-06-21 21:54] LABS: ALKALINE PHOSPHATASE 101 U/L (38-126); ANION GAP 15.6 MEQ/L (5-15); BLOOD UREA NITROGEN 17 mg/dL (7-17); CHLORIDE 97 mmol/L (98-107); Carbon Dioxide 32 mmol/L (22-30); EST GLOMERULAR FILTRATION RATE > 60.0 ML/MIN; Glucose 84 mg/dL (74-106); MAGNESIUM 1.5 mg/dL (1.6-2.3); NT PRO BNP 207 pg/mL (0-900); SGOT/AST 17 U/L (14-36); SGPT/ALT 13 U/L (0-35); SODIUM 140 mmol/L (137-145); Total Protein 7.5 g/dL (6.3-8.2)
--- NOTE | 2022-06-21 21:57 | ERPHSYRPT ---
- History of Present Illness Time Seen by Provider: 06/21/22 20:54 Source: patient, family, EMS, skilled nursing records Exam Limitations: clinical condition Patient Subjective Stated Complaint: according to [facility], pt has been having fever, and loss of appetite, pt has been on bactrim since yesterday for tooth decay. Triage Nursing Assessment: pt is non verbal, fever of 102.2 axillary, pt has history of cva. moher is present now to answer questions Physician History: 52 years old female with history of CVA with left-sided residual weakness, aphasia, COPD, dysphagia, congestive heart failure, bedridden on Eliquis presented in the ER with decreased oral intake for last couple of days, cough with some difficulty breathing and fever with a T-max of 102. This has been going on for the last couple of days. Patient is not a good historian and history is limited, obtained mainly from skilled nursing record, EMS and patient's mom. Timing/Duration: day(s) (2), gradual onset, worse Fever Severity: moderate Associated Symptoms: cough, shortness of breath, sore throat, weakness Allergies/Adverse Reactions: tramadol Allergy (Severe, Verified 04/15/19 14:37) Rash codeine Allergy (Mild, Verified 08/08/15 18:12) Penicillins Allergy (Verified 01/07/18 22:56) trazodone Allergy (Verified 06/21/22 21:09) Home Medications: Ipratropium/Albuterol Sulfate [Combivent Inhaler] 1 puff IH QID 05/18/15 [History] Levothyroxine Sodium 50 Mcg [Synthroid 50 Mcg] 50 mcg PO DAILY 05/18/15 [History] Simvastatin 5 mg PO HS 05/18/15 [History] Multivit with Calcium,Iron,Min [Womens Multiple Vitamins] 1 each PO DAILY 08/08/15 [History] Allopurinol 100 mg [Zyloprim 100 mg] 100 mg PO DAILY 06/21/22 [History] Cyclobenzaprine HCl 10 mg [Cyclobenzaprine 10 MG] 10 mg PO DAILY 06/21/22 [History] Fluticasone/Salmeterol 230/21 [Advair Hfa 230/21 Mcg COMMON CANISTER*] 2 puff IH DAILY 06/21/22 [History] Furosemide 20 mg [Lasix 20 mg] 20 mg PO DAILY 06/21/22 [History] Metoprolol Tartrate 25 mg [Lopressor 25MG Tab] 25 mg PO DAILY 06/21/22 [History] Pregabalin [Lyrica 150Mg] 150 mg PO DAILY 06/21/22 [History] Sertraline HCl 50 mg [Zoloft 50 mg Tablet] 50 mg PO DAILY 06/21/22 [History] Spironolactone 25 mg [Aldactone 25 MG] 25 mg PO DAILY 06/21/22 [History] Sulfamethoxazole/Trimethoprim [Bactrim Ds Tablet] 1 tab PO BID 06/21/22 [Histo ry] Hx Tetanus, Diphtheria Vaccination/Date Given: Yes Hx Influenza Vaccination/Date Given: Yes Hx Pneumococcal Vaccination/Date Given: Yes Travel Risk - International Travel Have you traveled outside of the country in past 3 weeks: No - Coronavirus Screening Are you exhibiting any of the following symptoms?: No - Vaccine Status Have you recieved a Covid-19 vaccination: Yes [employer]: [employer] - Vaccination Dates Date of 2cond Vaccination (if applicable): unknown - Review of Systems All Other Systems: Unable due to condition - Past Medical History Pertinent Past Medical History: Yes Neurological History: No Pertinent History ENT History: No Pertinent History Cardiac History: Deep Vein Thrombosis, High Cholesterol Respiratory History: Asthma Endocrine Medical History: Diabetes Type II Musculoskeletal History: Arthritis GI Medical History: No Pertinent History History: Other Psycho-Social History: Anxiety, Depression Female Reproductive Disorders: No Pertinent History Other Medical History: 2003 L kidney removed. History of blood clots, notes pr esent one in one of her legs. History of PE. 2L O2. - Past Surgical History Past Surgical History: Yes Neuro Surgical History: No Pertinent History Cardiac: No Pertinent History Respiratory: No Pertinent History Gastrointestinal: No Pertinent History Genitourinary: Other Musculoskeletal: No Pertinent History Female Surgical History: Section, Other Other Surgical History: LEFT KIDNEY REMOVAL-2004, D/C x 2 - Social History Smoking Status: Never smoker Exposure to second hand smoke: Yes Drug Use: none Patient Lives Alone: No - Nursing Vital Signs Nursing Vital Signs: Initial Vital Signs Temperature 102.2 F 06/21/22 20:53 Pulse Rate 102 H 06/21/22 20:53 Respiratory Rate 22 06/21/22 20:53 Blood Pressure 152/83 06/21/22 20:53 O2 Sat by Pulse Oximetry 98 06/21/22 20:53 Pain Scale Pain Intensity 0 - Physical Exam General Appearance: no apparent distress, alert Eye Exam: PERRL/EOMI ENT Exam: pharyngeal erythema Neck Exam: normal inspection, non-tender, supple, full range of motion Respiratory Exam: decreased breath sounds, decreased air movement Cardiovascular/Chest Exam: normal heart sounds, regular rate/rhythm Gastrointestinal/Abdominal Exam: soft, non tender, No no distention Extremity Exam: non-tender, normal inspection, No normal range of motion Neurologic Exam: alert, motor deficits (Left-sided weakness), No housekeeping coordinator II-XII nml as tested, No normal mood/affect, No sensation nml Skin Exam: normal color SpO2 Interpretation: borderline oxygenation SpO2: 98 O2 Delivery: Nasal Cannula (2 L) - Course EKG Interpreted by Me: RATE ([id number]), Sinus Tach, Left [place] Deviation, NORMAL INTERVALS, Q-wave (Anterolateral Q waves), Non-specific ST Changes Ordered Tests: Active Orders 24 hr Category Date Time Status Glazier Supervisor STAT Care 06/21/22 21:27 Active EKG-ER Only STAT Care 06/21/22 21:27 Active IV Insertion STAT Care 06/21/22 21:27 Active Oxygen-ED Only Nasal Cannula 2 lpm Care 06/21/22 21:27 Active CHEST 1 VIEW (PORTABLE) Stat Exams 06/21/22 21:27 Taken HEAD WITHOUT CONTRAST [CT] Stat Exams 06/21/22 23:54 Taken BLOOD CULTURE Stat Lab 06/21/22 21:27 Ordered CBC W DIFF Stat Lab 06/21/22 21:35 Completed CMP Stat Lab 06/21/22 21:35 Completed CULTURE,URINE Stat Lab 06/21/22 22:03 Received Lactic Acid Stat Lab 06/21/22 21:30 Completed MAGNESIUM Stat Lab 06/21/22 21:35 Completed NT PRO BNP Stat Lab 06/21/22 21:35 Completed PROCALCITONIN Stat Lab 06/21/22 21:55 Completed TROPONIN Q4H Lab 06/21/22 21:41 Completed TROPONIN Q4H Lab 06/22/22 01:30 Ordered TROPONIN Q4H Lab 06/22/22 05:30 Ordered UA W/RFX CULTURE Stat Lab 06/21/22 22:03 Completed Respiratory Therapy Assessment DAILY RT 06/21/22 21:35 Active Medication Summary Generic Name Dose Route Start Last Admin Trade Name Kendell PRN Reason Stop Dose Admin Magnesium Sulfate/Dextrose 100 mls @ 200 mls/hr 06/22/22 01:13 06/22/22 01:24 Magnesium 1 Gm / 100 Ml D5w IV 06/22/22 01:42 200 mls/hr STAT ONE Administration Discontinued Medications Generic Name Dose Route Start Last Admin Trade Name Kendell PRN Reason Stop Dose Admin Acetaminophen 975 mg 06/21/22 21:14 06/21/22 21:19 Acetaminophen 650 Mg Supp.Rect VA 06/21/22 21:15 975 mg STAT ONE Administration Acetaminophen Confirm 06/21/22 21:18 Acetaminophen 650 Mg Supp.Rect Administered 06/21/22 21:19 Dose 1,300 mg .ROUTE .STK-MED ONE Albuterol/Ipratropium 3 ml 06/21/22 21:27 06/21/22 21:46 Ipratropium/Albuterol Sulfate 3 Ml Ampul.Neb IH 06/21/22 21:28 3 ml STAT ONE Administration Albuterol/Ipratropium Confirm 06/21/22 21:33 Ipratropium/Albuterol Sulfate 3 Ml Ampul.Neb Administered 06/21/22 21:34 Dose 3 ml IH .STK-MED ONE Methylprednisolone Sodium 0 mg 06/21/22 21:27 06/21/22 21:47 Succinate 125 mg/ Sterile IV 06/21/22 21:28 125 mg Water 2 ml STAT ONE Administration Sodium Chloride 500 mls @ 500 mls/hr 06/21/22 22:34 06/22/22 00:55 Sodium Chloride 0.9% 500 Ml IV 06/21/22 23:33 Infused .Q1H ONE Infusion Sodium Chloride Confirm 06/21/22 22:36 Sodium Chloride 0.9% 500 Ml Administered 06/21/22 22:37 Dose 500 mls @ ud IV .STK-MED ONE Levofloxacin/Dextrose 750 mg in 150 mls @ 100 mls/hr 06/21/22 22:46 06/22/22 00:55 Levofloxacin 750mg/150ml D5w IV 06/22/22 00:15 Infused STAT STA Infusion Levofloxacin/Dextrose Confirm 06/21/22 23:03 Levofloxacin 750mg/150ml D5w Administered 06/21/22 23:04 Dose 750 mg in 150 mls @ ud IV .STK-MED ONE Magnesium Sulfate/Dextrose Confirm 06/22/22 01:23 Magnesium 1 Gm / 100 Ml D5w Administered 06/22/22 01:24 Dose 100 mls @ ud IV .STK-MED ONE Methylprednisolone Sodium Succinate Confirm 06/21/22 21:45 Methylprednis Sod Succ 125 Mg/2 Ml Vial Administered 06/21/22 21:46 Dose 125 mg .ROUTE .STK-MED ONE Ondansetron HCl 4 mg 06/21/22 21:29 06/21/22 21:47 Ondansetron Hcl 4 Mg/2 Ml Vial IV 06/21/22 21:30 4 mg STAT ONE Administration Ondansetron HCl Confirm 06/21/22 21:45 Ondansetron Hcl 4 Mg/2 Ml Vial Administered 06/21/22 21:46 Dose 4 mg .ROUTE .STK-MED ONE Pantoprazole Sodium 40 mg 06/21/22 21:30 06/21/22 21:47 Pantoprazole 40 Mg Vial IV 06/21/22 21:31 40 mg STAT ONE Administration Pantoprazole Sodium Confirm 06/21/22 21:45 Pantoprazole 40 Mg Vial Administered 06/21/22 21:46 Dose 40 mg IV .STK-MED ONE Sterile Water Confirm 06/21/22 21:45 Water For Injection,Sterile 10 Ml Vial Administered 06/21/22 21:46 Dose 10 ml IJ .STK-MED ONE Lab/Rad Data: Laboratory Result Diagrams 06/21/22 21:35 06/21/22 21:35 Laboratory Results 06/21/22 06/21/22 06/21/22 Range/Units 22:03 21:55 21:41 WBC (4.0-10.5) x10^3/uL RBC (4.1-5.4) x10^6/uL Hgb (12.0-16.0) g/dL Hct (35-47) % MCV (78-100) fL MCH (26-32) pg MCHC (32-36) g/dL RDW (11.5-14.0) % Plt Count (150-450) x10^3/uL MPV (7.5-11.0) fL Gran % (36.0-66.0) % Immature Gran % (Auto) (0.00-0.4) % Nucleat RBC Rel Count (0.00-0.1) % Eos # (Auto) (0-0.5) x10^3/uL Immature Gran # (Auto) (0.00-0.03) x10^3u/L Absolute Lymphs (auto) (1.0-4.6) x10^3/uL Absolute Monos (auto) (0.0-1.3) x10^3/uL Absolute Nucleated RBC (0.00-0.01) x10^3u/L Lymphocytes % (24.0-44.0) % Monocytes % (0.0-12.0) % Eosinophils % (0.00-5.0) % Basophils % (0.0-0.4) % Absolute Granulocytes (1.4-6.9) x10^3/uL Basophils # (0-0.4) x10^3/uL Sodium (137-145) mmol/L Potassium (3.5-5.1) mmol/L Chloride (98-107) mmol/L Carbon Dioxide (22-30) mmol/L Anion Gap (5-15) MEQ/L BUN (7-17) mg/dL Creatinine (0.52-1.04) mg/dL Estimated GFR ML/MIN Glucose (74-106) mg/dL Lactic Acid (0.4-2.0) Calcium (8.4-10.2) mg/dL Magnesium (1.6-2.3) mg/dL Total Bilirubin (0.2-1.3) mg/dL AST (14-36) U/L ALT (0-35) U/L Alkaline Phosphatase (38-126) U/L Troponin I 0.015 (0.000-0.034) ng/mL NT-Pro-B Natriuret Pep (0-900) pg/mL Serum Total Protein (6.3-8.2) g/dL Albumin (3.5-5.0) g/dL Procalcitonin 0.458 H (0.030-0.080) ng/mL Urinalys Dipstick Clnc MAIN LAB Urine Color YELLOW (YELLOW) Urine Appearance CLEAR (CLEAR) Urine pH 5.5 (5-6) Ur Specific Victor 1.025 (1.005-1.025) POC Urine Protein Conf 30 (Negative) Urine Ketones SMALL-15 (NEGATIVE) Urine Nitrite POSITIVE (NEGATIVE) Urine Bilirubin MODERATE (NEGATIVE) Urine Urobilinogen 1 (0-1) mg/dL Urine Leukocytes SMALL (NEGATIVE) Urine WBC (Auto) 16-25 (0-5) /HPF Urine RBC (Auto) 0-2 (0-2) /HPF U Epithel Cells (Auto) RARE (FEW) /HPF Urine Bacteria (Auto) RARE (NEGATIVE) /HPF Urine RBC TRACE-INTACT (0-5) Rd/ul Ur Culture Indicated? YES Urine Glucose NEGATIVE (NEGATIVE) mg/dL Influenza Type A Ag (NEGATIVE) Influenza Type B Ag (NEGATIVE) RSV (PCR) (Negative) SARS-CoV-2 (PCR) (NEGATIVE) Group A Strep Antibody (NEGATIVE) 06/21/22 06/21/22 06/21/22 Range/Units 21:35 21:35 21:30 WBC 12.7 H (4.0-10.5) x10^3/uL RBC 4.24 (4.1-5.4) x10^6/uL Hgb 13.0 (12.0-16.0) g/dL Hct 41.7 (35-47) % MCV 98.3 (78-100) fL MCH 30.7 (26-32) pg MCHC 31.2 L (32-36) g/dL RDW 11.9 (11.5-14.0) % Plt Count 123 L (150-450) x10^3/uL MPV 11.9 H (7.5-11.0) fL Gran % 84.5 H (36.0-66.0) % Immature Gran % (Auto) 0.9 H (0.00-0.4) % Nucleat RBC Rel Count 0.0 (0.00-0.1) % Eos # (Auto) 0.02 (0-0.5) x10^3/uL Immature Gran # (Auto) 0.12 H (0.00-0.03) x10^3u/L Absolute Lymphs (auto) 0.76 L (1.0-4.6) x10^3/uL Absolute Monos (auto) 1.04 (0.0-1.3) x10^3/uL Absolute Nucleated RBC 0.00 (0.00-0.01) x10^3u/L Lymphocytes % 6.0 L (24.0-44.0) % Monocytes % 8.2 (0.0-12.0) % Eosinophils % 0.2 (0.00-5.0) % Basophils % 0.2 (0.0-0.4) % Absolute Granulocytes 10.68 H (1.4-6.9) x10^3/uL Basophils # 0.03 (0-0.4) x10^3/uL Sodium 140 (137-145) mmol/L Potassium 4.0 (3.5-5.1) mmol/L Chloride 97 L (98-107) mmol/L Carbon Dioxide 32 H (22-30) mmol/L Anion Gap 15.6 H (5-15) MEQ/L BUN 17 (7-17) mg/dL Creatinine 0.80 (0.52-1.04) mg/dL Estimated GFR > 60.0 ML/MIN Glucose 84 (74-106) mg/dL Lactic Acid 1.4 (0.4-2.0) Calcium 9.0 (8.4-10.2) mg/dL Magnesium 1.5 L (1.6-2.3) mg/dL Total Bilirubin 1.30 (0.2-1.3) mg/dL AST 17 (14-36) U/L ALT 13 (0-35) U/L Alkaline Phosphatase 101 (38-126) U/L Troponin I (0.000-0.034) ng/mL NT-Pro-B Natriuret Pep 207 (0-900) pg/mL Serum Total Protein 7.5 (6.3-8.2) g/dL Albumin 4.0 (3.5-5.0) g/dL Procalcitonin (0.030-0.080) ng/mL Urinalys Dipstick Clnc Urine Color (YELLOW) Urine Appearance (CLEAR) Urine pH (5-6) Ur Specific Victor (1.005-1.025) POC Urine Protein Conf (Negative) Urine Ketones (NEGATIVE) Urine Nitrite (NEGATIVE) Urine Bilirubin (NEGATIVE) Urine Urobilinogen (0-1) mg/dL Urine Leukocytes (NEGATIVE) Urine WBC (Auto) (0-5) /HPF Urine RBC (Auto) (0-2) /HPF U Epithel Cells (Auto) (FEW) /HPF Urine Bacteria (Auto) (NEGATIVE) /HPF Urine RBC (0-5) Rd/ul Ur Culture Indicated? Urine Glucose (NEGATIVE) mg/dL Influenza Type A Ag (NEGATIVE) Influenza Type B Ag (NEGATIVE) RSV (PCR) (Negative) SARS-CoV-2 (PCR) (NEGATIVE) Group A Strep Antibody (NEGATIVE) 06/21/22 06/21/22 Range/Units 21:17 20:58 WBC (4.0-10.5) x10^3/uL RBC (4.1-5.4) x10^6/uL Hgb (12.0-16.0) g/dL Hct (35-47) % MCV (78-100) fL MCH (26-32) pg MCHC (32-36) g/dL RDW (11.5-14.0) % Plt Count (150-450) x10^3/uL MPV (7.5-11.0) fL Gran % (36.0-66.0) % Immature Gran % (Auto) (0.00-0.4) % Nucleat RBC Rel Count (0.00-0.1) % Eos # (Auto) (0-0.5) x10^3/uL Immature Gran # (Auto) (0.00-0.03) x10^3u/L Absolute Lymphs (auto) (1.0-4.6) x10^3/uL Absolute Monos (auto) (0.0-1.3) x10^3/uL Absolute Nucleated RBC (0.00-0.01) x10^3u/L Lymphocytes % (24.0-44.0) % Monocytes % (0.0-12.0) % Eosinophils % (0.00-5.0) % Basophils % (0.0-0.4) % Absolute Granulocytes (1.4-6.9) x10^3/uL Basophils # (0-0.4) x10^3/uL Sodium (137-145) mmol/L Potassium (3.5-5.1) mmol/L Chloride (98-107) mmol/L Carbon Dioxide (22-30) mmol/L Anion Gap (5-15) MEQ/L BUN (7-17) mg/dL Creatinine (0.52-1.04) mg/dL Estimated GFR ML/MIN Glucose (74-106) mg/dL Lactic Acid (0.4-2.0) Calcium (8.4-10.2) mg/dL Magnesium (1.6-2.3) mg/dL Total Bilirubin (0.2-1.3) mg/dL AST (14-36) U/L ALT (0-35) U/L Alkaline Phosphatase (38-126) U/L Troponin I (0.000-0.034) ng/mL NT-Pro-B Natriuret Pep (0-900) pg/mL Serum Total Protein (6.3-8.2) g/dL Albumin (3.5-5.0) g/dL Procalcitonin (0.030-0.080) ng/mL Urinalys Dipstick Clnc Urine Color (YELLOW) Urine Appearance (CLEAR) Urine pH (5-6) Ur Specific Victor (1.005-1.025) POC Urine Protein Conf (Negative) Urine Ketones (NEGATIVE) Urine Nitrite (NEGATIVE) Urine Bilirubin (NEGATIVE) Urine Urobilinogen (0-1) mg/dL Urine Leukocytes (NEGATIVE) Urine WBC (Auto) (0-5) /HPF Urine RBC (Auto) (0-2) /HPF U Epithel Cells (Auto) (FEW) /HPF Urine Bacteria (Auto) (NEGATIVE) /HPF Urine RBC (0-5) Rd/ul Ur Culture Indicated? Urine Glucose (NEGATIVE) mg/dL Influenza Type A Ag NEGATIVE (NEGATIVE) Influenza Type B Ag NEGATIVE (NEGATIVE) RSV (PCR) NEGATIVE (Negative) SARS-CoV-2 (PCR) NEGATIVE (NEGATIVE) Group A Strep Antibody NOT DETECTED (NEGATIVE) - Progress Progress: improved, re-examined Progress Note: 06/21/22 23:42 52 years old is evaluated for fever chills and not feeling well. Chest x-ray showed questionable infiltrate right middle lobe. She is given a dose of Levaquin. She does have UTI. Mildly low magnesium for which she will be getting replacement. Given Tylenol for symptomatic relief. Patient is feeling better on reevaluation. Discussed with Dr. Ott and patient is excepted for admission. 06/22/22 01:37 Patient mom later reported that she is complaining of some swelling around right side of head. On evaluation it was found that she has a hematoma. CT head without contrast is obtained and is negative for any intracranial findings but is scalp hematoma. Recommended ice and patient is being transferred to floor. Discussed with : Katerina Counseled pt/family regarding: lab results, diagnosis, need for follow-up, rad results - Departure Departure Disposition: Observation Clinical Impression: Sepsis secondary to UTI, Pneumonia, Scalp hematoma Condition: Stable Critical Care Time: No Referrals: EDUARDO CORRAL [ACTIVE STAFF] - Follow up/PCP as directed
[2022-06-21 22:10] LABS: Appearance CLEAR (CLEAR); Bilirubin MODERATE (NEGATIVE); Glucose NEGATIVE (NEGATIVE); Ketones SMALL-15 (NEGATIVE); Specific Gravity 1.025 (1.005-1.025)
[2022-06-21 22:11] LABS: Dipstick done @ ? MAIN LAB; Nitrite POSITIVE (NEGATIVE); Ph 5.5 (5-6); Protein,Urine Dip 30 (Negative); RBC TRACE-INTACT Ery/ul (0-5); Urobilinogen 1 mg/dL (0-1)
[2022-06-21 22:12] LABS: Bacteria RARE /HPF (NEGATIVE); Epithelial Cells RARE /HPF (FEW); RBC 0-2 /HPF (0-2); Urine Cultured Indicated? YES
[2022-06-21] MEDS ORDERED: Sodium Chloride 0.9% 500 ML 500 ML IV ONE ×2 (22:34→22:36)
[2022-06-21] MEDS ORDERED: LEVOFLOXACIN 750MG/150ML D5W 750 MG/150 ML BAG IV STA (22:46)
[2022-06-21] MEDS ORDERED: LEVOFLOXACIN 750MG/150ML D5W 750 MG/150 ML BAG IV ONE (23:03)
[2022-06-22] MEDS ORDERED: Magnesium 1 Gm / 100 Ml D5W*** 100 ML IV ONE ×2 (01:13→01:23)
[2022-06-22] MEDS ORDERED: HUMALOG SQ PRN (02:02)
[2022-06-22] MEDS ORDERED: DUONEB 0.5-3 MG/3 ml Neb IH SCH (02:02)
[2022-06-22] MEDS: solu-MEDROL 60 MG, Sterile H2O 10 ml 2 ML IV SCH ×10 (05:48→17:14)
[2022-06-22 06:11] LABS: Absolute Neutrophil Ct (ANC) 11.35 x10^3/uL (1.4-6.9); Basophil (Absolute #) 0.01 x10^3/uL (0-0.4); Eosinophil (Absolute #) 0 x10^3/uL (0-0.5); Hematocrit 36.2 % (35-47); Hemoglobin 11.4 g/dL (12.0-16.0); Lymphocyte (Absolute #) 0.28 x10^3/uL (1.0-4.6); Lymphocytes % 2.3 % (24.0-44.0); Mean Corpuscular Hemoglobin 30.2 pg (26-32); Mean Corpuscular Hgb Concent. 31.5 g/dL (32-36); Mean Platelet Volume 11.9 fL (7.5-11.0); Monocyte (Absolute #) 0.26 x10^3/uL (0.0-1.3); Monocytes % 2.2 % (0.0-12.0); Platelet Count 112 x10^3/uL (150-450); Red Blood Count 3.77 x10^6/uL (4.1-5.4); Red Cell Distribution Width 11.9 % (11.5-14.0); White Blood Count 12.1 x10^3/uL (4.0-10.5)
[2022-06-22] MEDS ORDERED: solu-MEDROL ONE ×2 (06:18→16:27)
[2022-06-22] MEDS ORDERED: Sterile H2O 10 ml IJ ONE (06:19)
[2022-06-22 06:50] LABS: ALBUMIN 3.7 g/dL (3.5-5.0); ALKALINE PHOSPHATASE 97 U/L (38-126); ANION GAP 14.1 MEQ/L (5-15); BLOOD UREA NITROGEN 17 mg/dL (7-17); CHLORIDE 99 mmol/L (98-107); Calcium 8.9 mg/dL (8.4-10.2); Carbon Dioxide 29 mmol/L (22-30); Creatinine 1 0.72 mg/dL (0.52-1.04); EST GLOMERULAR FILTRATION RATE > 60.0 ML/MIN; Glucose 143 mg/dL (74-106); Potassium 4.2 mmol/L (3.5-5.1); SGOT/AST 16 U/L (14-36); SGPT/ALT 13 U/L (0-35); SODIUM 138 mmol/L (137-145); Total Protein 7.4 g/dL (6.3-8.2)
--- NOTE | 2022-06-22 07:12 | XRAY ---
Indication: Short of breath. Comparison: April 15, 2019 Portable chest demonstrates new mild right perihilar airspace disease without consolidation/large effusion. Heart borderline enlarged. Bony thorax intact again with osteopenia and degenerative changes.
[2022-06-22] MEDS: DUONEB 0.5-3 MG/3 ml Neb IH SCH ×4 (07:24→18:59)
[2022-06-22] MEDS: Advair Hfa 230/21 Mcg COMMON CANISTER IH SCH ×2 (07:26→19:02)
--- NOTE | 2022-06-22 07:27 | XRAY ---
Indication: Pain. Possible fall. Multiple contiguous axial images obtained through the head without contrast. Comparison: January 07, 2018. Age-appropriate global atrophy. No acute intracranial hemorrhage, abnormal extra-axial fluid collection, or mass effect. Fourth ventricle is midline without hydrocephalus. New scalp hematoma near the vertex. Bony calvarium intact. Visualized paranasal sinuses and mastoid air cells are clear. Impression: Scalp hematoma. No underlying fracture or acute intracranial abnormalities. Comment: Preliminary interpretation made by [facility]. No critical discrepancy.
[2022-06-22 09:55] LABS: Slide Review 1 YES
[2022-06-22] MEDS ORDERED: NYSTOP 30 GM CREAM TP PRN ×2 (11:47→12:00)
[2022-06-22] MEDS: Docusate Sodium 100 MG PO SCH ×2 (12:11→20:22)
[2022-06-22] MEDS: Lopressor 25MG Tab PO SCH (12:11)
--- NOTE | 2022-06-22 12:11 | PCM.HP ---
History of Present Illness - Chief Complaint Chief Complaint: Sepsis secondary to UTI History of Present Illness: is a 52 year old female patient S/P CVA who resides at [facility] Patient is bedridden with residual left sided weakness and aphasia who develpoed cough, fever of 102 ,shortness of breath and decreased appetite. Patient was evaluated in ER and admitted to [facility] with Dg Urosepsis and pneumonia. Prolactin level is elevated at 0.458, WBC=12,700. There is concern for possible recurrent aspiratin. - Review of Systems Constitutional: Fever Eyes: No Symptoms Ears, Nose, & Throat: Nose Congestion Respiratory: Cough, Wheezing Cardiac: No Symptoms Abdominal/Gastrointestinal: No Symptoms Genitourinary Symptoms: No Symptoms, Incontinence Musculoskeletal: No Symptoms Neurological: Focal Weakness (since CVA nonambulatory) Psychological: No Symptoms Medications & Allergies Home Medications: Home Medication List Acetaminophen 325 mg [Tylenol 325 mg] 650 mg PO Q6H PRN 06/29/22 [History Confirmed 06/29/22] Acetaminophen 325 mg [Tylenol 325 mg] 650 mg PO Q6H PRN PRN 06/29/22 [History Confirmed 06/29/22] Allopurinol 100 mg [Zyloprim 100 mg] 100 mg PO DAILY 06/29/22 [History Confirmed 06/29/22] Apixaban [Eliquis 5 mg Tablet] 5 mg PO BID 06/29/22 [History Confirmed 06/29/22] Bisacodyl 10 mg [Dulcolax 10 MG SUPP] 10 mg RC Q24H PRN 06/29/22 [History Confirmed 06/29/22] Cyclobenzaprine HCl 10 mg [Cyclobenzaprine 10 MG] 10 mg PO HS 06/29/22 [History Confirmed 06/29/22] Fluticasone/Salmeterol [Advair Hfa 230-21 Mcg Inhaler] 2 puff IH DAILY 06/29/22 [History Confirmed 06/29/22] Furosemide 20 mg [Lasix 20 mg] 20 mg PO DAILY 06/29/22 [History Confirmed 06/29/22] Hydrocortisone 2.5% 30 gm [Anusol-Hc 2.5% Cream 30 gm] 30 gm TP BID 06/29/22 [History Confirmed 06/29/22] Hydrocortisone 2.5% 30 gm [Anusol-Hc 2.5% Cream 30 gm] 30 gm TP BID PRN PRN 06/29/22 [History Confirmed 06/29/22] Levothyroxine Sodium 50 Mcg [Synthroid 50 Mcg] 50 mcg PO DAILY 06/29/22 [History Confirmed 06/29/22] Metoprolol Tartrate 25 mg [Lopressor 25MG Tab] 25 mg PO BID 06/29/22 [History Confirmed 06/29/22] Multivitamin [Multivitamins] 1 each PO DAILY 06/29/22 [History Confirmed 06/29/22] Non-Formulary Drug [Non-Formulary Item] 1 each PO Q6H PRN PRN 06/29/22 [History Confirmed 06/29/22] Non-Formulary Drug [Non-Formulary Item] 1 each TOP TIDPRN PRN 06/29/22 [History Confirmed 06/29/22] Nystatin Cream 30 gm [Nystop 30 gm Cream] 30 gm TP Q8H PRN PRN 06/29/22 [History Confirmed 06/29/22] Pregabalin 50 mg [Lyrica 50MG] 150 mg PO DAILY 06/29/22 [History Confirmed 06/29/22] Sennosides/Docusate Sodium [Senna Plus 8.6-50 mg Softgel] 2 tab PO DAILY 06/29/22 [History Confirmed 06/29/22] Sertraline HCl 50 mg [Zoloft 50 mg Tablet] 50 mg PO HS 06/29/22 [History Confirmed 06/29/22] Simvastatin 10 mg [Zocor 10MG] 5 mg PO DAILY 06/29/22 [History Confirmed 06/29/22] Spironolactone 25 mg [Aldactone 25 MG] 25 mg PO DAILY 06/29/22 [History Confirmed 06/29/22] Ertapenem Sodium [Ertapenem] 1 gm IM DAILY 7 Days #7 07/02/22 [Rx] clindamycin HCL [Cleocin HCl] 300 mg PO QID #28 cap 07/02/22 [Rx] Allergies/Adverse Reactions: Allergies Allergy/AdvReac Type Severity Reaction Status Date / Time codeine Allergy Mild Verified 06/29/22 14:53 Penicillins Allergy Verified 06/29/22 14:53 trazodone Allergy Verified 06/29/22 14:53 - Past Medical History Past Medical History: Yes Neurological History: No Pertinent History ENT History: No Pertinent History Cardiac History: Deep Vein Thrombosis, High Cholesterol Respiratory History: Asthma Endocrine Medical History: Diabetes Type II Musculoskelatal History: Arthritis GI Medical History: No Pertinent History History: Other Pyscho-Social History: Anxiety, Depression Reproductive Disorders: No Pertinent History Comment: 2003 L kidney removed. History of blood clots, notes present one in one of her legs. History of PE. 2L O2. - Female History Are you now?: No - Past Surgical History Past Surgical History: Yes Neuro Surgical History: No Pertinent History Cardiac History: No Pertinent History Respiratory Surgery: No Pertinent History GI Surgical History: No Pertinent History Genitourinary Surgical Hx: Other Musculskeletal Surgical Hx: No Pertinent History Female Surgical History: Section, Other Other Surgical History: LEFT KIDNEY REMOVAL-2004, D/C x 2 - Social History Smoking Status: Former smoker Exposure to second hand smoke: No Alcohol: None Drug Use: none - Physical Exam Vital Signs: Vital Signs - 24 hr Temp Pulse Resp BP Pulse Ox 06/22/22 11:35 72 18 92 L 06/22/22 08:00 96.8 F 75 18 127/59 93 L 06/22/22 07:24 75 18 93 L 06/22/22 04:00 86 18 06/22/22 03:02 88 16 93 L 06/22/22 02:45 97.1 F 89 20 114/63 98 06/22/22 01:38 98 06/22/22 01:25 106 H 20 113/69 98 06/22/22 00:10 107 H 18 123/72 95 06/21/22 23:14 109 H 18 117/77 95 06/21/22 22:04 115 H 18 149/66 97 06/21/22 21:46 108 H 24 98 06/21/22 20:53 102.2 F 102 H 22 152/83 98 General Appearance: no apparent distress Neurologic Exam: alert (oriented to person), normal mood/affect (happy), slurred speech (chronic state,tries to communicate-Mother undr=erstands patient) Eye Exam: eyes nml inspection Ears, Nose, Throat Exam: normal ENT inspection Neck Exam: normal inspection Respiratory Exam: diminished breath sounds, wheezing, other (2L/NC) Cardiovascular Exam: tachycardia (regular) Gastrointestinal/Abdomen Exam: soft (nontender) Rectal Exam: not done Back Exam: normal inspection Extremity Exam: paralysis (left sided) Skin Exam: normal color, warm, dry Results - Labs Lab/Micro Results: Lab Results-Last 24 Hours 06/21/22 06/21/22 06/21/22 Range/Units 20:58 21:17 21:30 WBC (4.0-10.5) x10^3/uL RBC (4.1-5.4) x10^6/uL Hgb (12.0-16.0) g/dL Hct (35-47) % MCV (78-100) fL MCH (26-32) pg MCHC (32-36) g/dL RDW (11.5-14.0) % Plt Count (150-450) x10^3/uL MPV (7.5-11.0) fL Gran % (36.0-66.0) % Immature Gran % (Auto) (0.00-0.4) % Nucleat RBC Rel Count (0.00-0.1) % Eos # (Auto) (0-0.5) x10^3/uL Immature Gran # (Auto) (0.00-0.03) x10^3u/L Absolute Lymphs (auto) (1.0-4.6) x10^3/uL Absolute Monos (auto) (0.0-1.3) x10^3/uL Absolute Nucleated RBC (0.00-0.01) x10^3u/L Lymphocytes % (24.0-44.0) % Monocytes % (0.0-12.0) % Eosinophils % (0.00-5.0) % Basophils % (0.0-0.4) % Absolute Granulocytes (1.4-6.9) x10^3/uL Basophils # (0-0.4) x10^3/uL Sodium (137-145) mmol/L Potassium (3.5-5.1) mmol/L Chloride (98-107) mmol/L Carbon Dioxide (22-30) mmol/L Anion Gap (5-15) MEQ/L BUN (7-17) mg/dL Creatinine (0.52-1.04) mg/dL Estimated GFR ML/MIN Glucose (74-106) mg/dL Lactic Acid 1.4 (0.4-2.0) Calcium (8.4-10.2) mg/dL Magnesium (1.6-2.3) mg/dL Total Bilirubin (0.2-1.3) mg/dL AST (14-36) U/L ALT (0-35) U/L Alkaline Phosphatase (38-126) U/L Troponin I (0.000-0.034) ng/mL NT-Pro-B Natriuret Pep (0-900) pg/mL Serum Total Protein (6.3-8.2) g/dL Albumin (3.5-5.0) g/dL Procalcitonin (0.030-0.080) ng/mL Urinalys Dipstick Clnc Urine Color (YELLOW) Urine Appearance (CLEAR) Urine pH (5-6) Ur Specific [place] (1.005-1.025) POC Urine Protein Conf (Negative) Urine Ketones (NEGATIVE) Urine Nitrite (NEGATIVE) Urine Bilirubin (NEGATIVE) Urine Urobilinogen (0-1) mg/dL Urine Leukocytes (NEGATIVE) Urine WBC (Auto) (0-5) /HPF Urine RBC (Auto) (0-2) /HPF U Epithel Cells (Auto) (FEW) /HPF Urine Bacteria (Auto) (NEGATIVE) /HPF Urine RBC (0-5) Rd/ul Ur Culture Indicated? Urine Glucose (NEGATIVE) mg/dL Influenza Type A Ag NEGATIVE (NEGATIVE) Influenza Type B Ag NEGATIVE (NEGATIVE) RSV (PCR) NEGATIVE (Negative) SARS-CoV-2 (PCR) NEGATIVE (NEGATIVE) Group A Strep Antibody NOT DETECTED (NEGATIVE) Slides for Path Review 06/21/22 06/21/22 06/21/22 Range/Units 21:35 21:35 21:41 WBC 12.7 H (4.0-10.5) x10^3/uL RBC 4.24 (4.1-5.4) x10^6/uL Hgb 13.0 (12.0-16.0) g/dL Hct 41.7 (35-47) % MCV 98.3 (78-100) fL MCH 30.7 (26-32) pg MCHC 31.2 L (32-36) g/dL RDW 11.9 (11.5-14.0) % Plt Count 123 L (150-450) x10^3/uL MPV 11.9 H (7.5-11.0) fL Gran % 84.5 H (36.0-66.0) % Immature Gran % (Auto) 0.9 H (0.00-0.4) % Nucleat RBC Rel Count 0.0 (0.00-0.1) % Eos # (Auto) 0.02 (0-0.5) x10^3/uL Immature Gran # (Auto) 0.12 H (0.00-0.03) x10^3u/L Absolute Lymphs (auto) 0.76 L (1.0-4.6) x10^3/uL Absolute Monos (auto) 1.04 (0.0-1.3) x10^3/uL Absolute Nucleated RBC 0.00 (0.00-0.01) x10^3u/L Lymphocytes % 6.0 L (24.0-44.0) % Monocytes % 8.2 (0.0-12.0) % Eosinophils % 0.2 (0.00-5.0) % Basophils % 0.2 (0.0-0.4) % Absolute Granulocytes 10.68 H (1.4-6.9) x10^3/uL Basophils # 0.03 (0-0.4) x10^3/uL Sodium 140 (137-145) mmol/L Potassium 4.0 (3.5-5.1) mmol/L Chloride 97 L (98-107) mmol/L Carbon Dioxide 32 H (22-30) mmol/L Anion Gap 15.6 H (5-15) MEQ/L BUN 17 (7-17) mg/dL Creatinine 0.80 (0.52-1.04) mg/dL Estimated GFR > 60.0 ML/MIN Glucose 84 (74-106) mg/dL Lactic Acid (0.4-2.0) Calcium 9.0 (8.4-10.2) mg/dL Magnesium 1.5 L (1.6-2.3) mg/dL Total Bilirubin 1.30 (0.2-1.3) mg/dL AST 17 (14-36) U/L ALT 13 (0-35) U/L Alkaline Phosphatase 101 (38-126) U/L Troponin I 0.015 (0.000-0.034) ng/mL NT-Pro-B Natriuret Pep 207 (0-900) pg/mL Serum Total Protein 7.5 (6.3-8.2) g/dL Albumin 4.0 (3.5-5.0) g/dL Procalcitonin (0.030-0.080) ng/mL Urinalys Dipstick Clnc Urine Color (YELLOW) Urine Appearance (CLEAR) Urine pH (5-6) Ur Specific [place] (1.005-1.025) POC Urine Protein Conf (Negative) Urine Ketones (NEGATIVE) Urine Nitrite (NEGATIVE) Urine Bilirubin (NEGATIVE) Urine Urobilinogen (0-1) mg/dL Urine Leukocytes (NEGATIVE) Urine WBC (Auto) (0-5) /HPF Urine RBC (Auto) (0-2) /HPF U Epithel Cells (Auto) (FEW) /HPF Urine Bacteria (Auto) (NEGATIVE) /HPF Urine RBC (0-5) Rd/ul Ur Culture Indicated? Urine Glucose (NEGATIVE) mg/dL Influenza Type A Ag (NEGATIVE) Influenza Type B Ag (NEGATIVE) RSV (PCR) (Negative) SARS-CoV-2 (PCR) (NEGATIVE) Group A Strep Antibody (NEGATIVE) Slides for Path Review 06/21/22 06/21/22 06/22/22 Range/Units 21:55 22:03 02:07 WBC (4.0-10.5) x10^3/uL RBC (4.1-5.4) x10^6/uL Hgb (12.0-16.0) g/dL Hct (35-47) % MCV (78-100) fL MCH (26-32) pg MCHC (32-36) g/dL RDW (11.5-14.0) % Plt Count (150-450) x10^3/uL MPV (7.5-11.0) fL Gran % (36.0-66.0) % Immature Gran % (Auto) (0.00-0.4) % Nucleat RBC Rel Count (0.00-0.1) % Eos # (Auto) (0-0.5) x10^3/uL Immature Gran # (Auto) (0.00-0.03) x10^3u/L Absolute Lymphs (auto) (1.0-4.6) x10^3/uL Absolute Monos (auto) (0.0-1.3) x10^3/uL Absolute Nucleated RBC (0.00-0.01) x10^3u/L Lymphocytes % (24.0-44.0) % Monocytes % (0.0-12.0) % Eosinophils % (0.00-5.0) % Basophils % (0.0-0.4) % Absolute Granulocytes (1.4-6.9) x10^3/uL Basophils # (0-0.4) x10^3/uL Sodium (137-145) mmol/L Potassium (3.5-5.1) mmol/L Chloride (98-107) mmol/L Carbon Dioxide (22-30) mmol/L Anion Gap (5-15) MEQ/L BUN (7-17) mg/dL Creatinine (0.52-1.04) mg/dL Estimated GFR ML/MIN Glucose (74-106) mg/dL Lactic Acid (0.4-2.0) Calcium (8.4-10.2) mg/dL Magnesium (1.6-2.3) mg/dL Total Bilirubin (0.2-1.3) mg/dL AST (14-36) U/L ALT (0-35) U/L Alkaline Phosphatase (38-126) U/L Troponin I 0.014 (0.000-0.034) ng/mL NT-Pro-B Natriuret Pep (0-900) pg/mL Serum Total Protein (6.3-8.2) g/dL Albumin (3.5-5.0) g/dL Procalcitonin 0.458 H (0.030-0.080) ng/mL Urinalys Dipstick Clnc MAIN LAB Urine Color YELLOW (YELLOW) Urine Appearance CLEAR (CLEAR) Urine pH 5.5 (5-6) Ur Specific [place] 1.025 (1.005-1.025) POC Urine Protein Conf 30 (Negative) Urine Ketones SMALL-15 (NEGATIVE) Urine Nitrite POSITIVE (NEGATIVE) Urine Bilirubin MODERATE (NEGATIVE) Urine Urobilinogen 1 (0-1) mg/dL Urine Leukocytes SMALL (NEGATIVE) Urine WBC (Auto) 16-25 (0-5) /HPF Urine RBC (Auto) 0-2 (0-2) /HPF U Epithel Cells (Auto) RARE (FEW) /HPF Urine Bacteria (Auto) RARE (NEGATIVE) /HPF Urine RBC TRACE-INTACT (0-5) Rd/ul Ur Culture Indicated? YES Urine Glucose NEGATIVE (NEGATIVE) mg/dL Influenza Type A Ag (NEGATIVE) Influenza Type B Ag (NEGATIVE) RSV (PCR) (Negative) SARS-CoV-2 (PCR) (NEGATIVE) Group A Strep Antibody (NEGATIVE) Slides for Path Review 06/22/22 06/22/22 06/22/22 Range/Units 05:20 05:20 05:20 WBC 12.1 H (4.0-10.5) x10^3/uL RBC 3.77 L (4.1-5.4) x10^6/uL Hgb 11.4 L (12.0-16.0) g/dL Hct 36.2 (35-47) % MCV 96.0 (78-100) fL MCH 30.2 (26-32) pg MCHC 31.5 L (32-36) g/dL RDW 11.9 (11.5-14.0) % Plt Count 112 L (150-450) x10^3/uL MPV 11.9 H (7.5-11.0) fL Gran % 94.0 H (36.0-66.0) % Immature Gran % (Auto) 1.4 H (0.00-0.4) % Nucleat RBC Rel Count 0.0 (0.00-0.1) % Eos # (Auto) 0 (0-0.5) x10^3/uL Immature Gran # (Auto) 0.17 H (0.00-0.03) x10^3u/L Absolute Lymphs (auto) 0.28 L (1.0-4.6) x10^3/uL Absolute Monos (auto) 0.26 (0.0-1.3) x10^3/uL Absolute Nucleated RBC 0.00 (0.00-0.01) x10^3u/L Lymphocytes % 2.3 L (24.0-44.0) % Monocytes % 2.2 (0.0-12.0) % Eosinophils % 0.0 (0.00-5.0) % Basophils % 0.1 (0.0-0.4) % Absolute Granulocytes 11.35 H (1.4-6.9) x10^3/uL Basophils # 0.01 (0-0.4) x10^3/uL Sodium 138 (137-145) mmol/L Potassium 4.2 (3.5-5.1) mmol/L Chloride 99 (98-107) mmol/L Carbon Dioxide 29 (22-30) mmol/L Anion Gap 14.1 (5-15) MEQ/L BUN 17 (7-17) mg/dL Creatinine 0.72 (0.52-1.04) mg/dL Estimated GFR > 60.0 ML/MIN Glucose 143 H (74-106) mg/dL Lactic Acid (0.4-2.0) Calcium 8.9 (8.4-10.2) mg/dL Magnesium (1.6-2.3) mg/dL Total Bilirubin 1.00 (0.2-1.3) mg/dL AST 16 (14-36) U/L ALT 13 (0-35) U/L Alkaline Phosphatase 97 (38-126) U/L Troponin I < 0.012 (0.000-0.034) ng/mL NT-Pro-B Natriuret Pep (0-900) pg/mL Serum Total Protein 7.4 (6.3-8.2) g/dL Albumin 3.7 (3.5-5.0) g/dL Procalcitonin (0.030-0.080) ng/mL Urinalys Dipstick Clnc Urine Color (YELLOW) Urine Appearance (CLEAR) Urine pH (5-6) Ur Specific [place] (1.005-1.025) POC Urine Protein Conf (Negative) Urine Ketones (NEGATIVE) Urine Nitrite (NEGATIVE) Urine Bilirubin (NEGATIVE) Urine Urobilinogen (0-1) mg/dL Urine Leukocytes (NEGATIVE) Urine WBC (Auto) (0-5) /HPF Urine RBC (Auto) (0-2) /HPF U Epithel Cells (Auto) (FEW) /HPF Urine Bacteria (Auto) (NEGATIVE) /HPF Urine RBC (0-5) Rd/ul Ur Culture Indicated? Urine Glucose (NEGATIVE) mg/dL Influenza Type A Ag (NEGATIVE) Influenza Type B Ag (NEGATIVE) RSV (PCR) (Negative) SARS-CoV-2 (PCR) (NEGATIVE) Group A Strep Antibody (NEGATIVE) Slides for Path Review YES - Radiology Impressions Radiology Exams & Impressions: Radiology Procedures Category Date Time Status CHEST 1 VIEW (PORTABLE) Stat Exams 06/21/22 21:27 Completed HEAD WITHOUT CONTRAST [CT] Stat Exams 06/21/22 23:54 Completed - Other Procedures and Tests Respiratory Therapy 06/21/22 21:35 Respiratory Therapy Assessment DAILY 06/22/22 02:02 Oxygen Nasal Cannula 2 lpm Assessment/Plan (1) Pneumonia Status: Acute Assessment & Plan: probable aspiration ,chronic- Speech Therapy to eval. Code(s): J18.9 - PNEUMONIA, UNSPECIFIED ORGANISM (2) Sepsis secondary to UTI Status: Acute Assessment & Plan: culture pending Code(s): A41.9 - SEPSIS, UNSPECIFIED ORGANISM; N39.0 - URINARY TRACT INFECTION, SITE NOT SPECIFIED (3) History of CVA with residual deficit Status: Suspected Code(s): I69.30 - UNSPECIFIED SEQUELAE OF CEREBRAL INFARCTION
[2022-06-22] MEDS: ZOLOFT 50 MG TABLET PO SCH (12:12)
[2022-06-22] MEDS: LYRICA 150MG PO SCH (12:12)
[2022-06-22] MEDS: Cyclobenzaprine 10 MG PO SCH (12:12)
[2022-06-22] MEDS: LASIX 20 MG PO SCH (12:12)
[2022-06-22] MEDS: TYLENOL 325 MG PO PRN ×2 (12:12→20:23)
[2022-06-22] MEDS: SYNTHROID 50 MCG PO SCH (12:12)
[2022-06-22] MEDS: Aldactone 25 MG PO SCH (12:12)
[2022-06-22] MEDS: ELIQUIS 2.5 MG TABLET PO SCH ×2 (12:12→20:23)
[2022-06-22] MEDS: ZYLOPRIM 100 MG PO SCH (12:12)
[2022-06-22] MEDS: PROTONIX 40 MG IV IV SCH (12:13)
[2022-06-22] MEDS: Zocor 10MG PO SCH (20:22)
[2022-06-22] MEDS: Levofloxacin 500MG/100ML D5W 500 MG/100 ML BAG IV SCH (21:28)
[2022-06-22] MEDS ORDERED: NON-FORMULARY ITEM (Simvastatin [Simvastatin] 5 MG Tablet) PO SCH (22:00)
[2022-06-22] MEDS ORDERED: NON-FORMULARY ITEM (Apixaban*** [Eliquis 5 Mg Tablet***] 5 MG Tablet) PO SCH (22:00)
[2022-06-23] MEDS: solu-MEDROL 60 MG, Sterile H2O 10 ml 2 ML IV SCH ×10 (00:09→23:34)
[2022-06-23] MEDS: DUONEB 0.5-3 MG/3 ml Neb IH SCH ×4 (06:46→19:18)
[2022-06-23] MEDS: Advair Hfa 230/21 Mcg COMMON CANISTER IH SCH ×2 (06:46→19:20)
[2022-06-23] MEDS ORDERED: THERAGRAN MULTIVITAMIN PO SCH (10:00)
[2022-06-23] MEDS ORDERED: [UNRECOGNIZED DRUG - OTHER] PO SCH (10:00)
[2022-06-23] MEDS ORDERED: MULTIVIT WITH CALCIUM IRON MIN PO SCH (10:00)
[2022-06-23] MEDS: Cyclobenzaprine 10 MG PO SCH (10:55)
[2022-06-23] MEDS: Docusate Sodium 100 MG PO SCH ×3 (10:55→22:04)
[2022-06-23] MEDS: Aldactone 25 MG PO SCH (10:55)
[2022-06-23] MEDS: LASIX 20 MG PO SCH (10:58)
[2022-06-23] MEDS: LYRICA 150MG PO SCH (11:00)
[2022-06-23] MEDS: ELIQUIS 2.5 MG TABLET PO SCH ×2 (11:00→21:42)
[2022-06-23] MEDS: ZOLOFT 50 MG TABLET PO SCH (11:00)
[2022-06-23] MEDS: SYNTHROID 50 MCG PO SCH (11:00)
[2022-06-23] MEDS: Lopressor 25MG Tab PO SCH (11:00)
[2022-06-23] MEDS: ZYLOPRIM 100 MG PO SCH (11:01)
[2022-06-23] MEDS: PROTONIX 40 MG IV IV SCH (12:11)
--- NOTE | 2022-06-23 14:18 | XRAY ---
Indication: Aspiration. Modified barium swallow study performed by the Department of speech therapy bedside with fluoroscopic assistance provided. Patient ingested multiple consistencies of liquids. Full report and recommendations will be reported separately. Approximately 1 minute 17 minute fluoroscopy used.
[2022-06-23] MEDS: Levofloxacin 500MG/100ML D5W 500 MG/100 ML BAG IV SCH (21:42)
[2022-06-23] MEDS: Zocor 10MG PO SCH (21:42)
[2022-06-23] MEDS: TYLENOL 325 MG PO PRN (21:43)
--- NOTE | 2022-06-23 22:47 | PCM.NOTE ---
Date and Time: 06/23/222240 Subjective Assessment: Patient pleasant ,Mom at bedside. Speech Therapist and Radiology here to evaluate .Suspect chronic aspiration Objective Exam General Appearance: no apparent distress Neurologic Exam: alert (nonverbal), normal mood/affect (happy) Skin Exam: normal color, warm, dry Respiratory Exam: diminished breath sounds, wheezing Cardiovascular Exam: tachycardia Gastrointestinal/Abdomen Exam: soft OBJECTIVE DATA Vital Signs: Vital Signs - 24 hr Temp Pulse Resp BP Pulse Ox 06/23/22 19:19 106 H 19 92 L 06/23/22 19:02 96.9 F 124 H 17 114/52 90 L 06/23/22 16:00 97.8 F 109 H 16 111/58 93 L 06/23/22 15:47 85 22 94 L 06/23/22 11:45 74 20 93 L 06/23/22 11:36 97.7 F 74 15 128/71 93 L 06/23/22 07:49 96.9 F 80 14 122/56 90 L 06/23/22 06:48 68 18 93 L 06/23/22 04:00 91 L 06/22/22 23:56 97.1 F 85 24 116/65 90 L Pain Assessment - Last Documented Pain Intensity 0 Pain Scale Used 0-10 Pain Scale Intake and Output: Intake & Output 06/21/22 06/22/22 06/23/22 06/24/22 11:59 11:59 11:59 11:59 Intake Total 240 420 Balance 240 420 Weight 94 kg Lab Results: Lab Results-Last 24 Hours 06/23/22 06/23/22 06/23/22 Range/Units 07:17 11:23 16:19 POC Glucometer 140 H 116 H 124 H (74 to 106) mg/dL 06/23/22 Range/Units 21:22 POC Glucometer 161 H (74 to 106) mg/dL Radiology Exams: Radiology Procedures Category Date Time Status HEAD WITHOUT CONTRAST [CT] Stat Exams 06/21/22 23:54 Completed MODIFIED BARIUM SWALLOW (RAD) [MODIFIED BARIUM SWALLOW Exams 06/23/22 14:03 Completed EXAM] Routine Multi-Disciplinary Progress Notes: Multi-Disciplinary Progress Notes 06/23/22 16:17 Mod Barium Swallow Note by Shruthi#[id number],Antionette Modified Barium Swallow Study ST Modified Barium Swallow Study Start: 06/23/22 15:11 Freq: .as ordered Status: Active Protocol: Document 06/23/22 15:16 BM (Rec: 06/23/22 16:17 [id number]) E-Sign 06/23/22 15:16 BM Modified Barium Swallow Reason for Assessment Primary Diagnosis A41.9 - SEPSIS, UNSPECIFIED ORGANISM Primary Diagnosis (cont) J18.9 - PNEUMONIA, UNSPECIFIED ORGANISM Treatment Diagnosis #1 I69.391 - DYSPHAGIA FOLLOWING CEREBRAL INFARCTION Reason for Assessment PATIENT REFERRED FOR MBS STUDY BY NURSE AND PHYSICIAN ORDER DUE TO DIFFICULTY WITH ORAL BOLUS CONTROL AND COUGH/CHOKE POST INTAKE OF LIQUIDS. Onset Date 06/21/22 Date of Evaluation/SOC 06/23/22 Pain Assessment Do you have pain on swallowing No Non-verbal signs & symptoms of pain No Modified Barium Swallow View This evaluation was completed to assess the functioning of the oral and pharyngeal phases of swallowing and to determine if the patient is aspirating or at risk for aspiration. Modified Barium Swallow View Lateral View Consistencies Assessed Barium trials included: Thin Liquid via Spoon,[place] Liquid via Spoon,Pudding Liquid via spoon,Pureed Food Aspiration Risk Aspiration Observed No Amount of Aspiration Observed None Patient considered at risk of aspiration Yes during oral intake Patient is at risk for aspiration After the swallow,Before the swallow Severity of Aspiration Risk Moderate Penetration into Laryngeal Vestibule No Penetration occured with None Reason for aspirational risk: PATIENT AT RISK FOR ASPIRATION BEFORE THE SWALLOW DUE TO PREMATURE SPILLAGE TO VALLECULAE AND TO OPENING OF CRICOPHARYNGEUS PRIOR TO SWALLOW INITIATION. PATIENT AT RISK FOR ASPIRATION AFTER THE SWALLOW DUE TO AMOUNT OF RESIDUE REMAINING IN ORAL CAVITY FOLLOWING SWALLOW COMPLETION REQUIRING MULTIPLE SWALLOWS TO ATTEMPT TO CLEAR AND ORAL CARE FOLLOWING MBS STUDY. Aspiration Scale 8-Point Penetration-Aspiration Scale ( 1. Material does not enter [place]) airway Residue/Retention Residue Observed Tongue Base Esophageal Function No Impairment (WFL) Other UNABLE TO FULLY ASSESS ESOPHAGEAL FUNCTION DURING THIS MBS STUDY DUE TO MOVEMENT LIMITATION OF EQUIPMENT UTILIZED. DUE TO POOR ORAL BOLUS CONTROL , PATIENT DEMONSTRATED LARGE VOLUME OF RESIDUE REMAINING IN ORAL CAVITY FOLLOWING SWALLOW COMPLETION, REQUIRING MULTIPLE SWALLOWS Assessment of Swallow Phases Oral Phase Labial Closure Severe Impairment Bolus Formation No Bolus Control Pooling L/R Moderate Impairment Bolus Control under Tongue Moderate Impairment Bolus Control Scattered Loss Severe Impairment Mastication Effectiveness Severe Impairment A/P Bolus Propulsion Severe Impairment Premature Spillage into: Pyriform Sinuses,Valleculae A/P Lingual Propulsion Delay Mild Impairment A/P Lingual Propulsion Delay (sec) 2 Lingual Movement Severe Impairment Residue Clearing/Sensitivity Severe Impairment Aspiration No Swallow Initiation Delay Moderate Impairment Swallow Delay Time (sec) 2 Other Oral Phase Observations PATIENT WITH POOR BILABIAL CLOSURE WITH BOLUS EXPULSION ANTERIORLY THROUGHOUT ALL CONSISTENCIES TRIALLED. PATIENT WITH POOR BILABIAL AND LINGUAL MOVEMENTS TO REMOVE BOLUS FROM SPOON OR DRINK FROM A CUP. WITHIN ORAL CAVITY, PATIENT DEMONSTRATED POOR ORAL BOLUS CONTROL/MANIPULATION WITH SPILLAGE ANTERIORLY, L/R BUCCAL, AND SUBLINGUAL. SHE REQUIRED TONGUE PUMPING FOR A/ P BOLUS PROPULSION. Pharyngeal Phase Base of Tongue Retraction No Impairment (WFL) Epiglottic Coverage No Impairment (WFL) Laryngeal Elevation No Impairment (WFL) Laryngeal Closure No Impairment (WFL) Vallecular Retention Clearing No Impairment (WFL) Pharyn. Wall Residue Clearing No Impairment (WFL) Pyriform Sinus Retention No Impairment (WFL) Penetration No Aspiration No Cricopharyngeal Dysfunction No Cough Delayed Other Pharyngeal Phase Observation PATIENT DEMONSTRATED FUNCTIONAL PHARYNGEAL PHASE OF SWALLOW DURING THIS MBS STUDY . HOWEVER, WHEN GIVEN A DRINK OF WATER FOLLOWING THE MBS ( WITHOUT VIDEO RECORDING), PATIENT DEMONSTRATED COUGH/ CHOKE WITH EACH DRINK OF WATER TAKEN. Clinical Interpretation Clinical Interpretation PATIENT WITH SEVERE ORAL DYSPHAGIA. Speech Therapy Teaching Record Teaching Summary Results/Recommendations Learning Preferences Discussion Barriers to Learning None Readiness for Learning Accepting Teaching Methods Discussion Teaching Recipient Patient,Family Response to Teaching Verbalize understanding ST Recommendations Diet Consistency Pureed Liquid Consistency Pudding Comment WITH SPOON PRESENTATION Follow-Up Primary Physician regarding findings/ Yes recommendations Safe Swallow Compensatory Strategies Compensatory Strategies Upright Position for all meals ,Small bites and drinks,Dry swallows,Alternate solids/ liquids,Thicken Liquids (see consistency above) Medication Instructions Crush Medication(s),Medication (s) in pudding or applesauce Staff/Family Suggestions Oral Care after Meals, Reinforce Treatment Program, Direct supervision/assistance with all meals Speech Therapist Treatment Program Therapeutic Feeds Monitor Progress,Diet Consistency Analysis Rehabilitation Potential: FAIR Additional Comments: DISCUSSED PATIENT WITH LTC FACILITY WHERE PATIENT RESIDES . UNKNOWN LENGTH OF COUGH/ CHOKE OCCURRING. Signatures Speech Therapist Signature ROXY MS, CCC/SHIPPING COORDINATOR Physician Signature DR Oziel DRISCOLL, RADIOLOGIST Initialized on 06/23/22 16:17 - END OF NOTE Assessment/Plan (1) Pneumonia Status: Acute Qualifiers: Pneumonia type: aspiration pneumonia Assessment & Plan: speech therapy here today evaluating Code(s): J18.9 - PNEUMONIA, UNSPECIFIED ORGANISM
[2022-06-24] MEDS ORDERED: TYLENOL 325 MG PO PRN (03:09)
[2022-06-24] MEDS ORDERED: solu-MEDROL ONE (05:34)
[2022-06-24] MEDS: solu-MEDROL 60 MG, Sterile H2O 10 ml 2 ML IV SCH ×2 (05:47)
[2022-06-24] MEDS: DUONEB 0.5-3 MG/3 ml Neb IH SCH (07:05)
[2022-06-24] MEDS: Advair Hfa 230/21 Mcg COMMON CANISTER IH SCH (07:06)
[2022-06-24 07:17] VITALS: O2SAT 92
[2022-06-24 07:50] VITALS: BP 113/58; PULSE 73
== END 2022-06-24 09:05 ==
LOC: ED 20:51 → MED SURG 06-22 01:51
PROVIDERS: ADMIT Family Medicine; ATTEND Family Medicine
DX: J18.9 Pneumonia, unspecified organism (principal); A41.9 Sepsis, unspecified organism; N39.0 Urinary tract infection, site not specified; I69.920 Aphasia following unspecified cerebrovascular disease; E11.9 Type 2 diabetes mellitus without complications; E78.5 Hyperlipidemia, unspecified; S00.03XA Contusion of scalp, initial encounter; Z79.01 Long term (current) use of anticoagulants; Z79.899 Other long term (current) drug therapy; Z20.828 Contact with and (suspected) exposure to other viral communicable diseases; Z99.81 Dependence on supplemental oxygen
CPT/HCPCS: 0241U; 36000; 36415; 70450; 71045; 74230; 80053; 81015; 82947; 83605; 83735; 83880; 84145; 84484; 85025; 87077; 87086; 87651; 92611; 93005; 93041; 93268; 94640; 94760; 96360; 96361; 96374; 96375; 99285; G0378; J1956; J2405; J2930; J3475; A9270-GY

== ENCOUNTER 2022-06-29 14:28 | Observation (INO) | payer MEDICARE ==
[2022-06-29] MEDS ORDERED: TORAdol 30 mg Injection IM ONE (15:53)
[2022-06-29] MEDS ORDERED: TORAdol 30 mg Injection ONE (15:55)
--- NOTE | 2022-06-29 17:54 | ERPHSYRPT ---
- History of Present Illness Time Seen by Provider: 06/29/22 14:35 Patient Subjective Stated Complaint: C/O draining hemtoma to the back of patient's head. Hematoma has been present for over a week but retirement nurse indicates that it started draining today. Triage Nursing Assessment: Patient brought into ED by ambulance. She is alert but non-verbal. No SOB noted. A raised area is noted to the back right side of her head. Area is red in color and boggy measuring 7cm X 6cm. 2 small open areas noted to with a moderate amount of slimy, sangopurulent drainage noted from areas. NO odor noted at his time. Physician History: 52 years old female with history of CVA, left-sided weakness with aphasia, bedridden, on Eliquis, congestive heart failure, recent admitted for pneumonia presented in the ER with scalp swelling that discharge of pus since this morning. Patient apparently took a fall few weeks ago and had CT done on previous ER visit which was negative and it did show some hematoma. No fever or chills reported. History is limited due to her condition and obtained from retirement records/EMS. Allergies/Adverse Reactions: tramadol Allergy (Severe, Verified 06/29/22 14:53) Rash codeine Allergy (Mild, Verified 06/29/22 14:53) Penicillins Allergy (Verified 06/29/22 14:53) trazodone Allergy (Verified 06/29/22 14:53) Home Medications: Ipratropium/Albuterol Sulfate [Combivent Inhaler] 1 puff IH QID 05/18/15 [History] Levothyroxine Sodium 50 Mcg [Synthroid 50 Mcg] 50 mcg PO DAILY 05/18/15 [History] Simvastatin 5 mg PO HS 05/18/15 [History] Multivit with Calcium,Iron,Min [Womens Multiple Vitamins] 1 each PO DAILY 08/08/15 [History] Allopurinol 100 mg [Zyloprim 100 mg] 100 mg PO DAILY 06/21/22 [History] Cyclobenzaprine HCl 10 mg [Cyclobenzaprine 10 MG] 10 mg PO DAILY 06/21/22 [History] Fluticasone/Salmeterol 230/21 [Advair Hfa 230/21 Mcg COMMON CANISTER*] 2 puff IH DAILY 06/21/22 [History] Furosemide 20 mg [Lasix 20 mg] 20 mg PO DAILY 06/21/22 [History] Metoprolol Tartrate 25 mg [Lopressor 25MG Tab] 25 mg PO DAILY 06/21/22 [History] Pregabalin [Lyrica 150Mg] 150 mg PO DAILY 06/21/22 [History] Sertraline HCl 50 mg [Zoloft 50 mg Tablet] 50 mg PO DAILY 06/21/22 [History] Spironolactone 25 mg [Aldactone 25 MG] 25 mg PO DAILY 06/21/22 [History] Acetaminophen 325 mg [Tylenol 325 mg] 325 mg PO Q8H PRN PRN 06/22/22 [History] Apixaban [Eliquis 5 mg Tablet] 5 mg PO BID 06/22/22 [History] Menthol [Biofreeze] 89 ml TP TIDPRN 06/22/22 [History] Nystatin Cream 30 gm [Nystop 30 gm Cream] 30 gm TP Q8HPRN PRN 06/22/22 [History] Hx Tetanus, Diphtheria Vaccination/Date Given: Yes Hx Influenza Vaccination/Date Given: Yes Hx Pneumococcal Vaccination/Date Given: Yes Immunizations Up to Date: Yes Travel Risk - International Travel Have you traveled outside of the country in past 3 weeks: No - Coronavirus Screening Are you exhibiting any of the following symptoms?: No Close contact with a COVID-19 positive Pt in past 14-21 Days: No - Vaccine Status Have you recieved a Covid-19 vaccination: Yes Director 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: [employer] - Vaccination Dates Date of 2cond Vaccination (if applicable): unknown - Review of Systems All Other Systems: Unable due to condition - Past Medical History Pertinent Past Medical History: Yes Neurological History: Stroke, Other ENT History: No Pertinent History Cardiac History: Angina, Arrhythmia, Congestive Heart Failure, Coronary Artery Disease, Deep Vein Thrombosis, High Cholesterol Respiratory History: Asthma, Pulmonary Embolism Endocrine Medical History: Diabetes Type II, Hypothyroidism Musculoskeletal History: Arthritis GI Medical History: Other History: Other Psycho-Social History: Anxiety, Depression Female Reproductive Disorders: No Pertinent History Other Medical History: Dysphagia, A-fib, anemia, hyperlipidemia, pyridoxine deficiency, overactive bladder, momclonal gammopathy, obesity - Past Surgical History Past Surgical History: Yes Neuro Surgical History: No Pertinent History Cardiac: No Pertinent History Respiratory: No Pertinent History Gastrointestinal: No Pertinent History Genitourinary: Other Musculoskeletal: No Pertinent History Female Surgical History: Section, Other Other Surgical History: LEFT KIDNEY REMOVAL-2004, D/C x 2 - Social History Smoking Status: Former smoker Exposure to second hand smoke: No Drug Use: none Patient Lives Alone: No ([facility]) - Nursing Vital Signs Nursing Vital Signs: Initial Vital Signs Temperature 97.4 F 06/29/22 14:30 Pulse Rate 73 06/29/22 14:30 Respiratory Rate 18 06/29/22 14:30 Blood Pressure 129/78 06/29/22 14:30 O2 Sat by Pulse Oximetry 96 06/29/22 14:30 Pain Scale Pain Intensity 0 - Physical Exam General Appearance: no apparent distress, alert Ears, Nose, Throat Exam: normal ENT inspection Neck Exam: normal inspection, supple Respiratory Exam: normal breath sounds, lungs clear Cardiovascular Exam: regular rate/rhythm, normal heart sounds Gastrointestinal/Abdomen Exam: soft, No tenderness Extremity Exam: No normal range of motion Neurologic Exam: alert, No normal mood/affect Skin Exam: normal color, other (7 x 6 cm swelling posterior occipital area, soft fluctuant, small hole with minimal discharge of thick pus with blood-tinged. No step in deformity.) SpO2: 96 O2 Delivery: Nasal Cannula Ordered Tests: Active Orders 24 hr Category Date Time Status IV Insertion STAT Care 06/29/22 17:39 Active Oxygen-ED Only Nasal Cannula 2 lpm Care 06/29/22 17:44 Active HEAD WITHOUT CONTRAST [CT] Stat Exams 06/29/22 15:42 Taken CULTURE,ABSCESS Stat Lab 06/29/22 14:48 Received Medication Summary Discontinued Medications Generic Name Dose Route Start Last Admin Trade Name Freq PRN Reason Stop Dose Admin Ketorolac Tromethamine 30 mg 06/29/22 15:53 06/29/22 15:56 Ketorolac Tromethamine 30 Mg/Ml Inj IM 06/29/22 15:54 30 mg STAT ONE Administration Ketorolac Tromethamine Confirm 06/29/22 15:55 Ketorolac Tromethamine 30 Mg/Ml Inj Administered 06/29/22 15:56 Dose 30 mg .ROUTE .STK-MED ONE - Progress Progress: unchanged Progress Note: 06/29/22 17:52 I have tried to drain it with needle aspiration but not successful at all. Obtain CT head which did show collection but no intracranial bleed. Discussed with Dr. Darrell Isdiro, reviewed history, work-up, will hold off on Eliquis and patient would be taken to the OR for I&D in the morning. Discussed with Dr. Hernandez and patient is excepted for admission and consultation with general surgery. Counseled pt/family regarding: lab results, diagnosis, need for follow-up, rad results - Departure Departure Disposition: Observation Clinical Impression: Scalp hematoma, Scalp abscess Condition: Stable Critical Care Time: No Referrals: EMILY WEBBER MD [Primary Care Provider] - Follow up/PCP as directed
[2022-06-29 18:28] LABS: INFLUENZA A NEGATIVE (NEGATIVE); INFLUENZA B NEGATIVE (NEGATIVE); RESPIRATORY SYNCTIAL VIRUS NEGATIVE (Negative); SARS-CoV-2 Xpert Express NEGATIVE (NEGATIVE)
[2022-06-29] MEDS ORDERED: CLINDAMYCIN-D5W 600 MG/50 ML*** 600 MG/50 ML BAG IV STA (19:08)
[2022-06-29] MEDS ORDERED: CLINDAMYCIN-D5W 600 MG/50 ML*** 600 MG/50 ML BAG IV ONE (19:10)
--- NOTE | 2022-06-29 19:54 | XRAY ---
Indication: Right scalp abscess drainage. Multiple contiguous axial images obtained through the head without contrast. Comparison: June 21, 2022 Again age-appropriate global atrophy. No acute intracranial hemorrhage, abnormal extra-axial fluid collection, or mass effect. Fourth ventricle is midline without hydrocephalus. Bony calvarium intact. Previous scalp soft tissue swelling/abscess/hematoma near the vertex appears slightly larger. Impression: Slightly enlarging scalp soft tissue swelling/abscess/hematoma. Remaining CT head without contrast exam is negative. Comment: Preliminary interpretation made by [facility]. No critical discrepancy.
[2022-06-29] MEDS ORDERED: DUONEB 0.5-3 MG/3 ml Neb IH PRN (20:21)
[2022-06-29] MEDS ORDERED: TYLENOL 325 MG PO PRN (20:21)
[2022-06-29] MEDS ORDERED: Zofran 4 MG/2 ML VIAL IV PRN (20:21)
[2022-06-29 20:52] LABS: Absolute Neutrophil Ct (ANC) 5.24 x10^3/uL (1.4-6.9); Basophil (Absolute #) 0.01 x10^3/uL (0-0.4); Eosinophil % 2.1 % (0.00-5.0); Eosinophil (Absolute #) 0.15 x10^3/uL (0-0.5); Hematocrit 39.8 % (35-47); Hemoglobin 12.2 g/dL (12.0-16.0); Lymphocyte (Absolute #) 1.32 x10^3/uL (1.0-4.6); Lymphocytes % 18.3 % (24.0-44.0); Mean Corpuscular Hemoglobin 30.7 pg (26-32); Mean Corpuscular Hgb Concent. 30.7 g/dL (32-36); Mean Platelet Volume 11.2 fL (7.5-11.0); Monocyte (Absolute #) 0.43 x10^3/uL (0.0-1.3); Monocytes % 5.9 % (0.0-12.0); Neutrophil % 72.5 % (36.0-66.0); Platelet Count 125 x10^3/uL (150-450); Red Blood Count 3.98 x10^6/uL (4.1-5.4); White Blood Count 7.2 x10^3/uL (4.0-10.5)
[2022-06-29 21:07] LABS: ALBUMIN 3.7 g/dL (3.5-5.0); ALKALINE PHOSPHATASE 74 U/L (38-126); ANION GAP 8.1 MEQ/L (5-15); BLOOD UREA NITROGEN 14 mg/dL (7-17); CHLORIDE 101 mmol/L (98-107); Calcium 8.8 mg/dL (8.4-10.2); Carbon Dioxide 35 mmol/L (22-30); Creatinine 1 0.73 mg/dL (0.52-1.04); EST GLOMERULAR FILTRATION RATE > 60.0 ML/MIN; Glucose 74 mg/dL (74-106); Potassium 3.4 mmol/L (3.5-5.1); SGOT/AST 25 U/L (14-36); SGPT/ALT 15 U/L (0-35); SODIUM 141 mmol/L (137-145); Total Protein 7.2 g/dL (6.3-8.2)
[2022-06-29] MEDS: Dextrose 5% -0.45 NaCl 1000 ML 1,000 ML IV SCH (22:49)
[2022-06-29] MEDS: MORPHINE SULFATE 4 MG INJ IV PRN (23:50)
[2022-06-30] MEDS: MORPHINE SULFATE 4 MG INJ IV PRN (05:39)
--- NOTE | 2022-06-30 07:59 | PCM.HP ---
History of Present Illness - Chief Complaint Chief Complaint: Scalp abscess/hematoma History of Present Illness: is a 52 year old female from [facility] with no local physician brought to our ER by [employer] ambulance yesterday. She is aphasic from a previous stroke, apparently she had a fall a few weeks ago although she is bedridden. She had a large hematoma on her posterior upper scalp as she takes eliquis due to a history of a fib. Apparently she developed purulent discharge from the hematoma over the weekend. She is alert and able to write to communicate, denies any other complaints this morning. - Review of Systems Constitutional: No Fever, No Chills Respiratory: No Cough, No Short Of Breath Cardiac: No Chest Pain, No Edema, No Syncope Abdominal/Gastrointestinal: No Abdominal Pain, No Nausea, No Vomiting, No Diarrhea Skin: Other (scalp abscess) Medications & Allergies Home Medications: Home Medication List Acetaminophen 325 mg [Tylenol 325 mg] 650 mg PO Q6H PRN 06/29/22 [History Confirmed 06/29/22] Acetaminophen 325 mg [Tylenol 325 mg] 650 mg PO Q6H PRN PRN 06/29/22 [History Confirmed 06/29/22] Allopurinol 100 mg [Zyloprim 100 mg] 100 mg PO DAILY 06/29/22 [History Confirmed 06/29/22] Apixaban [Eliquis 5 mg Tablet] 5 mg PO BID 06/29/22 [History Confirmed 06/29/22] Bisacodyl 10 mg [Dulcolax 10 MG SUPP] 10 mg RC Q24H PRN 06/29/22 [History Confirmed 06/29/22] Cyclobenzaprine HCl 10 mg [Cyclobenzaprine 10 MG] 10 mg PO HS 06/29/22 [History Confirmed 06/29/22] Fluticasone/Salmeterol [Advair Hfa 230-21 Mcg Inhaler] 2 puff IH DAILY 06/29/22 [History Confirmed 06/29/22] Furosemide 20 mg [Lasix 20 mg] 20 mg PO DAILY 06/29/22 [History Confirmed 06/29/22] Hydrocortisone 2.5% 30 gm [Anusol-Hc 2.5% Cream 30 gm] 30 gm TP BID 06/29/22 [History Confirmed 06/29/22] Hydrocortisone 2.5% 30 gm [Anusol-Hc 2.5% Cream 30 gm] 30 gm TP BID PRN PRN 06/29/22 [History Confirmed 06/29/22] Levothyroxine Sodium 50 Mcg [Synthroid 50 Mcg] 50 mcg PO DAILY 06/29/22 [History Confirmed 06/29/22] Metoprolol Tartrate 25 mg [Lopressor 25MG Tab] 25 mg PO BID 06/29/22 [History Confirmed 06/29/22] Multivitamin [Multivitamins] 1 each PO DAILY 06/29/22 [History Confirmed 06/29/22] Non-Formulary Drug [Non-Formulary Item] 1 each PO Q6H PRN PRN 06/29/22 [History Confirmed 06/29/22] Non-Formulary Drug [Non-Formulary Item] 1 each TOP TIDPRN PRN 06/29/22 [History Confirmed 06/29/22] Nystatin Cream 30 gm [Nystop 30 gm Cream] 30 gm TP Q8H PRN PRN 06/29/22 [History Confirmed 06/29/22] Pregabalin 50 mg [Lyrica 50MG] 150 mg PO DAILY 06/29/22 [History Confirmed 06/29/22] Sennosides/Docusate Sodium [Senna Plus 8.6-50 mg Softgel] 2 tab PO DAILY 06/29/22 [History Confirmed 06/29/22] Sertraline HCl 50 mg [Zoloft 50 mg Tablet] 50 mg PO HS 06/29/22 [History Confirmed 06/29/22] Simvastatin 10 mg [Zocor 10MG] 5 mg PO DAILY 06/29/22 [History Confirmed 06/29/22] Spironolactone 25 mg [Aldactone 25 MG] 25 mg PO DAILY 06/29/22 [History Confirmed 06/29/22] Allergies/Adverse Reactions: Allergies Allergy/AdvReac Type Severity Reaction Status Date / Time codeine Allergy Mild Verified 06/29/22 14:53 Penicillins Allergy Verified 06/29/22 14:53 trazodone Allergy Verified 06/29/22 14:53 - Past Medical History Past Medical History: Yes Neurological History: Stroke, Other ENT History: No Pertinent History Cardiac History: Angina, Arrhythmia, Congestive Heart Failure, Coronary Artery Disease, Deep Vein Thrombosis, High Cholesterol Respiratory History: Asthma, Pulmonary Embolism Endocrine Medical History: Hypothyroidism Musculoskelatal History: Arthritis GI Medical History: Other History: Other Pyscho-Social History: Anxiety, Depression Reproductive Disorders: No Pertinent History Comment: Dysphagia, A-fib, anemia, hyperlipidemia, pyridoxine deficiency, overactive bladder, momclonal gammopathy, obesity. CLARIFIED WITH NH THAT PT DOES NOT HAVE DMII. - Female History Hx Last Menstrual Period: UNKNOWN Are you now?: No - Past Surgical History Past Surgical History: Yes Neuro Surgical History: No Pertinent History Cardiac History: No Pertinent History Respiratory Surgery: No Pertinent History GI Surgical History: No Pertinent History Genitourinary Surgical Hx: Other Musculskeletal Surgical Hx: No Pertinent History Female Surgical History: Section, Other Other Surgical History: LEFT KIDNEY REMOVAL-2004, D/C x 2 - Social History Smoking Status: Former smoker Exposure to second hand smoke: No Alcohol: None Drug Use: none - Physical Exam Vital Signs: Vital Signs - 24 hr Temp Pulse Resp BP Pulse Ox 06/30/22 07:39 97.8 F 73 16 140/74 98 06/30/22 05:41 66 20 98 06/30/22 04:00 97.8 F 57 L 18 132/67 97 06/29/22 23:51 98.3 F 69 17 116/65 98 06/29/22 21:00 66 20 100 06/29/22 20:30 98.3 F 68 19 118/66 100 06/29/22 20:00 76 18 130/83 98 06/29/22 18:00 68 18 98 06/29/22 17:53 96 06/29/22 16:35 60 18 115/71 96 06/29/22 15:37 75 18 136/82 96 06/29/22 14:30 97.4 F 73 18 129/78 96 General Appearance: no apparent distress, obese Neurologic Exam: alert, cooperative Respiratory Exam: normal breath sounds, lungs clear, No respiratory distress Cardiovascular Exam: regular rate/rhythm, normal heart sounds, normal peripheral pulses Gastrointestinal/Abdomen Exam: soft, normal bowel sounds, No tenderness, No mass Skin Exam: other (large hematoma to posterior upper scalp with purulent drainage present, no surrounding erythema. fluctuance is present) Wound Assessment: Skin/Wound Assessment Wound/Incision Assessment Start: 06/29/22 22:1 8 Text: Status: Active Freq: Q6H Protocol: Document 06/30/22 02:00 CW (Rec: 06/30/22 02:22 CW [id number]) Wound/Incision Assessment Posterior right side of head Wound Assessment Shift Assessment Wound Type HEMATOMA/ABCESS Wound Stage Non Pressure Wound Drainage Amount Moderate Drainage Description SANGOPURULENT Drainage Odor None/Absent General Appearance Open to air,Draining Length (cm) (cm) 7 Width (cm) (cm) 6 Comment NO CHANGE, PT HAS A DX HEMATOMA TO POSTERIOR RIGHT PARIETAL HEAD. AREA IS RED IN COLOR, BOGGY, MEASURING [id number]. 2 SMALL OPEN AREAS NOTED WITH A MODERATE AMOUNT OF THICK, SLIMY, SANGOPURULENT DRAINAGE NOTED FROM AREA, NO ODOR NOTED AT THIS TIME. Wound Photo Photo Taken No Results - Labs Lab/Micro Results: Lab Results-Last 24 Hours 06/29/22 06/29/22 06/29/22 Range/Units 17:46 20:48 20:48 WBC 7.2 (4.0-10.5) x10^3/uL RBC 3.98 L (4.1-5.4) x10^6/uL Hgb 12.2 (12.0-16.0) g/dL Hct 39.8 (35-47) % MCV 100.0 (78-100) fL MCH 30.7 (26-32) pg MCHC 30.7 L (32-36) g/dL RDW 12.0 (11.5-14.0) % Plt Count 125 L (150-450) x10^3/uL MPV 11.2 H (7.5-11.0) fL Gran % 72.5 H (36.0-66.0) % Immature Gran % (Auto) 1.1 H (0.00-0.4) % Nucleat RBC Rel Count 0.0 (0.00-0.1) % Eos # (Auto) 0.15 (0-0.5) x10^3/uL Immature Gran # (Auto) 0.08 H (0.00-0.03) x10^3u/L Absolute Lymphs (auto) 1.32 (1.0-4.6) x10^3/uL Absolute Monos (auto) 0.43 (0.0-1.3) x10^3/uL Absolute Nucleated RBC 0.00 (0.00-0.01) x10^3u/L Lymphocytes % 18.3 L (24.0-44.0) % Monocytes % 5.9 (0.0-12.0) % Eosinophils % 2.1 (0.00-5.0) % Basophils % 0.1 (0.0-0.4) % Absolute Granulocytes 5.24 (1.4-6.9) x10^3/uL Basophils # 0.01 (0-0.4) x10^3/uL Sodium 141 (137-145) mmol/L Potassium 3.4 L (3.5-5.1) mmol/L Chloride 101 (98-107) mmol/L Carbon Dioxide 35 H (22-30) mmol/L Anion Gap 8.1 (5-15) MEQ/L BUN 14 (7-17) mg/dL Creatinine 0.73 (0.52-1.04) mg/dL Estimated GFR > 60.0 ML/MIN Glucose 74 (74-106) mg/dL Calcium 8.8 (8.4-10.2) mg/dL Total Bilirubin 0.80 (0.2-1.3) mg/dL AST 25 (14-36) U/L ALT 15 (0-35) U/L Alkaline Phosphatase 74 (38-126) U/L Serum Total Protein 7.2 (6.3-8.2) g/dL Albumin 3.7 (3.5-5.0) g/dL Influenza Type A Ag NEGATIVE (NEGATIVE) Influenza Type B Ag NEGATIVE (NEGATIVE) RSV (PCR) NEGATIVE (Negative) SARS-CoV-2 (PCR) NEGATIVE (NEGATIVE) - Radiology Impressions Radiology Exams & Impressions: Radiology Procedures Category Date Time Status HEAD WITHOUT CONTRAST [CT] Stat Exams 06/29/22 15:42 Completed - Other Procedures and Tests Respiratory Therapy 06/29/22 21:12 Oxygen Nasal Cannula 2 lpm Respiratory Therapy Assessment DAILY Assessment/Plan (1) Scalp abscess Current Visit: Yes Status: Acute Assessment & Plan: culture is pending, eliquis is currently on hold and patient is NPO for incision and drainage today. clindamycin ordered for infection at this time. patient is stable Code(s): L02.811 - CUTANEOUS ABSCESS OF HEAD [ANY PART, EXCEPT FACE] (2) Scalp hematoma Current Visit: Yes Status: Acute Code(s): S00.03XA - CONTUSION OF SCALP, INITIAL ENCOUNTER (3) Atrial fibrillation Current Visit: Yes Status: Acute Assessment & Plan: will resume eliquis when ok with surgery post-op Code(s): I48.91 - UNSPECIFIED ATRIAL FIBRILLATION (4) Aphasia as late effect of cerebrovascular accident (CVA) Current Visit: Yes Status: Acute Code(s): I69.320 - APHASIA FOLLOWING CEREBRAL INFARCTION (5) Accidental fall Current Visit: No Status: Acute Code(s): W19.XXXA - UNSPECIFIED FALL, I NITIAL ENCOUNTER
[2022-06-30] MEDS ORDERED: [UNRECOGNIZED DRUG - OTHER] PO SCH (10:00)
[2022-06-30] MEDS ORDERED: SENNOSIDES PO SCH (10:00)
[2022-06-30] MEDS: MEDICATION ON HOLD MC SCH (10:00)
[2022-06-30] MEDS ORDERED: CAPSU PO SCH (10:00)
[2022-06-30] MEDS ORDERED: PROTONIX 40 MG IV IV SCH (10:00)
[2022-06-30] MEDS ORDERED: Lyrica 50MG PO SCH (10:00)
[2022-06-30] MEDS ORDERED: DOCUSATE SODIUM PO SCH (10:00)
[2022-06-30] MEDS: CLINDAMYCIN-D5W 600 MG/50 ML*** 600 MG/50 ML BAG IV SCH ×3 (11:04→21:21)
[2022-06-30] MEDS: Advair Hfa 230/21 Mcg COMMON CANISTER IH SCH ×2 (12:10→18:21)
[2022-06-30] MEDS ORDERED: CLINDAMYCIN-D5W 900 MG/50 ML*** 900 MG/50 ML BAG IV STA (12:49)
[2022-06-30] MEDS ORDERED: Sodium Chloride 0.9% 1000 ML 1,000 ML IV SCH (13:00)
[2022-06-30] MEDS ORDERED: DIPRIVAN 200 MG/20 ML IV ONE (13:36)
[2022-06-30] MEDS ORDERED: SUBLIMAZE 100 MCG/2 ML ONE (13:36)
[2022-06-30] MEDS ORDERED: Versed 2 MG/2 ML Injection ONE (13:36)
[2022-06-30] MEDS ORDERED: PHENYLEPHRINE HCL ONE (13:37)
[2022-06-30] MEDS ORDERED: Sensorcaine 0.25% 10 ML ONE (14:24)
--- NOTE | 2022-06-30 15:07 | CONS ---
CONSULT DATE: 06/30/2022 HISTORY: This patient was seen for Dr. Darrell Isidro who was consulted yesterday. Apparently she is a female with history of stroke. She lives in a nursing facility. Apparently she got a bump on her head after fall few weeks ago. She had been on some anticoagulants, had hematoma that is draining some foul drainage currently. She is in need of surgical intervention draining, evacuation and possible debridement depending on operative finding under brighter OR lights. PAST MEDICAL HISTORY: Dysphagia, stroke as mentioned above. Atrial fibrillation. Deep vein thrombosis. Hyperlipidemia. Congestive heart failure. Coronary artery disease. Diabetes. Hypothyroidism. Arthritis. Asthma. Anxiety. Depression. Overactive bladder. Stroke. Obesity. Pulmonary embolism in the past. High cholesterol in the past. PAST SURGICAL HISTORY: Again, as the patient has dysphasia the history was taken from the records and the chart. She had left kidney removed in the past. D&C. section. HOME MEDICATIONS: She has been on some Eliquis (apixaban) for history of depression in the past. She had been on some acetaminophen, allopurinol, multivitamin, cyclobenzaprine, furosemide, fluticasone/salmeterol Advair HFA, levothyroxine, Toprol, Nystatin cream, pregabalin, Senna Plus, Zoloft, Zocor, Aldactone. ALLERGIES: TRAMADOL. CODEINE. PEN[place]ILLLIN. TRAZODONE. FAMILY HISTORY: Negative in regards to this specific problem. SOCIAL HISTORY: Former smoker. No current alcohol abuse. REVIEW OF SYSTEMS: Fourteen systems reviewed per admission assessment. She denied any chest pain. She had drainage from her scalp. She does wear glasses. She has dysphagia from history of stroke in the past. Other systems negative or noncontributory as above and per preadmission questionnaire. PHYSICAL EXAMINATION: GENERAL: No acute distress. HEENT: Sclera nonicteric. Scalp on top of her head a hematoma with some a little bit of foul drainage currently. NEURO: She has dysphagia. Otherwise her eyes are open. She does communicate with some gestures. PSYCH: Appropriate mood and affect. CHEST: Equal excursion, nonlabored breathing. CVS: Regular rate and rhythm. ABDOMEN: Soft, obese. EXTREMITIES: No significant edema. NEURO: Alert. IMPRESSION: Infected scalp hematoma needs drainage, evacuation and possible debridement. General risk of ongoing bleeding, infection, risk of failure to heal, possible need for packing. General risk of anesthesia, deep vein thrombosis, pulmonary embolism but not limited to, consent obtained. Will proceed when OR time available.
[2022-06-30] MEDS: Aldactone 25 MG PO SCH (17:00)
[2022-06-30] MEDS: Senokot-S Tablet PO SCH (17:00)
[2022-06-30] MEDS: ZYLOPRIM 100 MG PO SCH (17:01)
[2022-06-30] MEDS: SYNTHROID 50 MCG PO SCH (17:01)
[2022-06-30] MEDS: Zocor 10MG PO SCH (17:02)
[2022-06-30] MEDS: LYRICA 150MG PO SCH (17:03)
[2022-06-30] MEDS: Lopressor 25MG Tab PO SCH ×3 (17:03→23:31)
[2022-06-30] MEDS: LASIX 20 MG PO SCH (17:04)
[2022-06-30] MEDS ORDERED: ROCEPHIN 1 Gm-D5w 50 ml Bag** 1 G/50 ML IVPB IV SCH (18:00)
[2022-06-30] MEDS ORDERED: PHARMACY DOSING REQUEST MC ONE (18:50)
[2022-06-30] MEDS ORDERED: Merrem IV ONE (20:34)
[2022-06-30] MEDS ORDERED: Sodium Chloride 100ML MINI-BAG PLUS 100 ML IV ONE (20:35)
[2022-06-30] MEDS: ZOLOFT 50 MG TABLET PO SCH ×2 (21:21→23:31)
[2022-06-30] MEDS: ULTRAM 50 MG PO PRN ×2 (21:21→23:31)
[2022-06-30] MEDS: Merrem 1 GM in Sodium Chloride 100ML MINI-BAG PLUS 100 ML IV SCH (21:54)
[2022-07-01] MEDS: Dextrose 5% -0.45 NaCl 1000 ML 1,000 ML IV SCH (04:00)
[2022-07-01] MEDS ORDERED: Merrem IV ONE (04:56)
[2022-07-01] MEDS ORDERED: Sodium Chloride 100ML MINI-BAG PLUS 100 ML IV ONE (04:57)
[2022-07-01] MEDS: CLINDAMYCIN-D5W 600 MG/50 ML*** 600 MG/50 ML BAG IV SCH ×2 (05:27→15:09)
[2022-07-01] MEDS: Merrem 1 GM in Sodium Chloride 100ML MINI-BAG PLUS 100 ML IV SCH ×3 (05:57→20:52)
[2022-07-01 08:39] LABS: Absolute Neutrophil Ct (ANC) 4.61 x10^3/uL (1.4-6.9); Basophil (Absolute #) 0.01 x10^3/uL (0-0.4); Eosinophil % 1.7 % (0.00-5.0); Hemoglobin 11.5 g/dL (12.0-16.0); Lymphocyte (Absolute #) 0.87 x10^3/uL (1.0-4.6); Lymphocytes % 14.5 % (24.0-44.0); Mean Cell Volume 100.3 fL (78-100); Mean Corpuscular Hemoglobin 30.3 pg (26-32); Mean Corpuscular Hgb Concent. 30.3 g/dL (32-36); Mean Platelet Volume 11.3 fL (7.5-11.0); Monocyte (Absolute #) 0.36 x10^3/uL (0.0-1.3); Neutrophil % 77.1 % (36.0-66.0); Platelet Count 97 x10^3/uL (150-450); Red Blood Count 3.79 x10^6/uL (4.1-5.4)
--- NOTE | 2022-07-01 08:40 | OP ---
SURGERY DATE/TIME: 06/30/2022 0264 The patient is seen for Dr. Darrell Isidro who was radiation therapy technician over the weekend when the consult came in. She has infected hematoma and I was asked to see her about draining, debridement and evacuating. PREOPERATIVE DIAGNOSIS: Infected hematoma of scalp, history of anticoagulation use. POSTOPERATIVE DIAGNOSIS: Infected hematoma of scalp, history of anticoagulation use. History of multiple medical problems. PROCEDURE: Drainage, evacuation infected hematoma with area extended out 5 or 6 cm. There was debridement of the skin and some devitalized subcu fat and a portion of underlying fascia an area about 2 x 2 cm. Irrigation, culture and packing. SURGEON: Dr. Logan Hewitt. ANESTHESIA: General. ESTIMATED BLOOD LOSS: Minimal. INDICATIONS: As noted above. Risks and benefits explained in detail including risk of nonhealing but not limited to and consent obtained. DESCRIPTION OF PROCEDURE AND FINDINGS: The patient is taken to the operating room. General anesthesia induced. The patient is prepped and draped in the usual sterile fashion. It is draining purulence. There is a 5 to 6 cm wide area of fluctuance. There is an area of skin about 2 cm area. The skin was excised down to what appeared to be devitalized subcu fat and a little portion of the fascia carefully excised and debrided. A large amount of old purulence and old hematoma carefully gently pushed out of the wound. Copious amount of irrigation irrigating clear. The staff was asked to send the material for culture. The wound was irrigated out with copious amount of sterile saline and appeared to have adequate hemostasis. 0.25% Marcaine local infiltrated in field pattern along the wound. The wound is then packed with some saline wet to dry once they trimmed the hair around the edge. There was no immediate complication. There was no family here to discuss the findings with. She needs to see the wound care physical therapy/occupational therapy department for wound care to decide if they want to put a VAC on this or not. Daily dressing changes. I will see her back in the office in about three weeks for further evaluation.
[2022-07-01 08:46] LABS: ANION GAP 6.5 MEQ/L (5-15); BLOOD UREA NITROGEN 10 mg/dL (7-17); CHLORIDE 101 mmol/L (98-107); Calcium 8.3 mg/dL (8.4-10.2); Carbon Dioxide 34 mmol/L (22-30); Creatinine 1 0.67 mg/dL (0.52-1.04); EST GLOMERULAR FILTRATION RATE > 60.0 ML/MIN; Glucose 75 mg/dL (74-106); Potassium 3.5 mmol/L (3.5-5.1); SODIUM 139 mmol/L (137-145)
[2022-07-01] MEDS: ULTRAM 50 MG PO PRN (09:29)
[2022-07-01] MEDS: Advair Hfa 230/21 Mcg COMMON CANISTER IH SCH (09:42)
[2022-07-01] MEDS: ZYLOPRIM 100 MG PO SCH (09:49)
[2022-07-01] MEDS: SYNTHROID 50 MCG PO SCH (09:49)
[2022-07-01] MEDS: Aldactone 25 MG PO SCH (09:49)
[2022-07-01] MEDS: Senokot-S Tablet PO SCH (09:49)
[2022-07-01] MEDS: LYRICA 150MG PO SCH (09:50)
[2022-07-01] MEDS: Zocor 10MG PO SCH (09:56)
[2022-07-01] MEDS: LASIX 20 MG PO SCH (10:19)
[2022-07-01] MEDS: Lopressor 25MG Tab PO SCH ×2 (10:20→20:56)
[2022-07-01] MEDS: Protonix 40MG Tablet PO SCH (10:21)
[2022-07-01 11:01] LABS: Slide Review 1 YES
--- NOTE | 2022-07-01 13:17 | PCM.NOTE ---
Date and Time: 07/01/22 1311 Subjective Assessment: Pt had I&D yesterday. Janeth was on hold for the procedure. Pt writes for me that she's had some heartburn. IN[employer] SEGMENT SPECIALIST reports she was complaining of nausea after the procedure, but they think that may have been due to the anesthesia. Pt appears to be very unhappy about the thickened liquids (and nursing staff reports this as well). - Review of Systems Constitutional: No Fever Abdominal/Gastrointestinal: Nausea, No Vomiting Objective Exam General Appearance: no apparent distress, alert, other (head is wrapped with gauze; small amount of blood present superior scalp portion of gauze.) Neurologic Exam: cooperative, other (Writes her thoughts slowly on paper. R sided hemiplegia.) Skin Exam: normal color, warm, dry, No rash Wound Assessment: Skin/Wound Assessment Wound/Incision Assessment Start: 06/29/22 22:18 Text: Status: Active Freq: Q6H Protocol: Document 07/01/22 08:00 AR (Rec: 07/01/22 10:52 AR [id number]) Wound/Incision Assessment Posterior right side of head Wound Assessment Shift Assessment Wound Type Incision Wound Stage Non Pressure Wound Dressing Status Changed Packing Type Gauze Roll Primary Dressing Non-Adherent Gauze Pads Secondary Dressing Gauze Roll/Wrap Comment DRESSING CHANGED PER PT, PICTURE IN CHART Wound Photo Photo Taken Yes Eye Exam: eyes nml inspection Ears, Nose, Throat Exam: moist mucous membranes Neck Exam: normal inspection Respiratory Exam: normal breath sounds, lungs clear, No crackles/rales, No rhonchi, No wheezing Cardiovascular Exam: regular rate/rhythm, normal heart sounds, No murmur Gastrointestinal/Abdomen Exam: soft, normal bowel sounds, No tenderness, No distention, No mass, No guarding, No rebound Extremity Exam: No pedal edema, No swelling OBJECTIVE DATA Vital Signs: Vital Signs - 24 hr Temp Pulse Resp BP Pulse Ox 07/01/22 11:12 97.7 F 70 16 109/57 97 07/01/22 09:49 74 20 93 L 07/01/22 07:39 98.0 F 57 L 16 93/55 95 07/01/22 04:00 97.1 F 50 L 16 100/53 100 06/30/22 23:43 97.0 F 60 16 117/61 89 L 06/30/22 19:49 97.2 F 66 16 111/58 99 06/30/22 18:23 69 14 91 L 06/30/22 17:26 98.0 F 63 16 102/63 93 L 06/30/22 16:34 97.9 F 65 15 97/51 93 L 06/30/22 16:09 97.6 F 65 16 124/60 99 06/30/22 15:30 96.9 F 65 16 116/64 100 06/30/22 13:14 98.0 F 66 16 127/81 96 Pain Assessment - Last Documented Pain Intensity 0 Pain Scale Used [facility] Intake and Output: Intake & Output 06/29/22 06/30/22 07/01/22 07/02/22 11:59 11:59 11:59 11:59 Intake Total 249 1858 Balance 249 1858 Weight 89.9 kg 89.7 kg 89.7 kg Lab Results: Lab Results-Last 24 Hours 07/01/22 07/01/22 Range/Units 08:25 08:25 WBC 6.0 (4.0-10.5) x10^3/uL RBC 3.79 L (4.1-5.4) x10^6/uL Hgb 11.5 L (12.0-16.0) g/dL Hct 38.0 (35-47) % MCV 100.3 H (78-100) fL MCH 30.3 (26-32) pg MCHC 30.3 L (32-36) g/dL RDW 12.0 (11.5-14.0) % Plt Count 97 L (150-450) x10^3/uL MPV 11.3 H (7.5-11.0) fL Gran % 77.1 H (36.0-66.0) % Immature Gran % (Auto) 0.5 H (0.00-0.4) % Nucleat RBC Rel Count 0.0 (0.00-0.1) % Eos # (Auto) 0.10 (0-0.5) x10^3/uL Immature Gran # (Auto) 0.03 (0.00-0.03) x10^3u/L Absolute Lymphs (auto) 0.87 L (1.0-4.6) x10^3/uL Absolute Monos (auto) 0.36 (0.0-1.3) x10^3/uL Absolute Nucleated RBC 0.00 (0.00-0.01) x10^3u/L Lymphocytes % 14.5 L (24.0-44.0) % Monocytes % 6.0 (0.0-12.0) % Eosinophils % 1.7 (0.00-5.0) % Basophils % 0.2 (0.0-0.4) % Absolute Granulocytes 4.61 (1.4-6.9) x10^3/uL Basophils # 0.01 (0-0.4) x10^3/uL Sodium 139 (137-145) mmol/L Potassium 3.5 (3.5-5.1) mmol/L Chloride 101 (98-107) mmol/L Carbon Dioxide 34 H (22-30) mmol/L Anion Gap 6.5 (5-15) MEQ/L BUN 10 (7-17) mg/dL Creatinine 0.67 (0.52-1.04) mg/dL Estimated GFR > 60.0 ML/MIN Glucose 75 (74-106) mg/dL Calcium 8.3 L (8.4-10.2) mg/dL Slides for Path Review YES Radiology Exams: Radiology Procedures Category Date Time Status HEAD WITHOUT CONTRAST [CT] Stat Exams 06/29/22 15:42 Completed Assessment/Plan (1) Scalp abscess Current Visit: Yes Status: Acute Assessment & Plan: On clindamycin day #3. Cultures pending. Code(s): L02.811 - CUTANEOUS ABSCESS OF HEAD [ANY PART, EXCEPT FACE] (2) Aphasia as late effect of cerebrovascular accident (CVA) Current Visit: Yes Status: Chronic Code(s): I69.320 - APHASIA FOLLOWING CEREBRAL INFARCTION (3) Scalp hematoma Current Visit: Yes Status: Acute Qualifiers: Encounter type: initial encounter Qualified Code(s): S00.03XA - Contusion of scalp, initial encounter Assessment & Plan: restarted Eliquis as it was just being held for the I&D. Code(s): S00.03XA - CONTUSION OF SCALP, INITIAL ENCOUNTER (4) Hemiplegia as late effect of cerebral infarction Current Visit: Yes Status: Chronic Qualifiers: Hemiplegia type: flaccid Hemiplegia laterality: right dominant side Qualified Code(s): I69.351 - Hemiplegia and hemiparesis following cerebral infarction affecting right dominant side Assessment & Plan: With trouble swallowing as well. She is unhappy with thickened liquids. She did aspirate recently. I mentioned to pt and her mother that sometimes people do decide that quality of life trumps safety concerns, and her mother said, "We want her here for a long time." Advise discussion with PCP. Code(s): I69.359 - HEMIPLGA FOLLOWING CEREBRAL INFARCTION AFFECTING UNSP SIDE
[2022-07-01] MEDS: ELIQUIS 2.5 MG TABLET PO SCH (20:56)
[2022-07-01] MEDS: ZOLOFT 50 MG TABLET PO SCH (20:56)
[2022-07-01] MEDS: MORPHINE SULFATE 4 MG INJ IV PRN (21:07)
[2022-07-02] MEDS: CLINDAMYCIN-D5W 600 MG/50 ML*** 600 MG/50 ML BAG IV SCH ×2 (00:13→06:28)
[2022-07-02] MEDS: Dextrose 5% -0.45 NaCl 1000 ML 1,000 ML IV SCH (03:13)
[2022-07-02] MEDS: Merrem 1 GM in Sodium Chloride 100ML MINI-BAG PLUS 100 ML IV SCH (05:43)
[2022-07-02] MEDS: MEDICATION ON HOLD MC SCH (07:09)
[2022-07-02] MEDS: ULTRAM 50 MG PO PRN (08:19)
--- NOTE | 2022-07-02 09:16 | PCM.DS ---
Discharge Summary Date of Admission: 06/29/22 20:17 Admitting Physician: DILAN BURGOS Primary Care Provider: EMILY WEBBER Allergies Allergies codeine Allergy (Mild, Verified 06/29/22 14:53) Penicillins Allergy (Verified 06/29/22 14:53) trazodone Allergy (Verified 06/29/22 14:53) Hospital Summary - Hospital Course Hospital Course: patient admitted with abscess on scalp, had a fall in [facility] 2-3 weeks ago with large hematoma. had incision and drainage by surgery, culture +MRSA. wound is packed and erythema and drainage are resolved. looks great, also had complicated uti with proteus on urine culture from previous visit. - Vitals & Intake/Output Vital Signs: Vital Signs Temperature 98.6 F 07/02/22 04:00 Pulse Rate 65 07/02/22 04:00 Respiratory Rate 16 07/02/22 04:00 Blood Pressure 98/59 07/02/22 04:00 O2 Sat by Pulse Oximetry 99 07/02/22 04:00 Intake & Output: Intake & Output 06/29/22 06/30/22 07/01/22 07/02/22 11:59 11:59 11:59 11:59 Intake Total 249 1858 2276 Balance 249 1858 2276 Weight 89.9 kg 89.7 kg 89.7 kg - Lab Result Diagrams: 07/01/22 08:25 07/01/22 08:25 Lab Results-Last 24 Hrs: Lab Results-Last 24 Hours 07/01/22 07/01/22 Range/Units 08:25 08:25 Sodium 139 (137-145) mmol/L Potassium 3.5 (3.5-5.1) mmol/L Chloride 101 (98-107) mmol/L Carbon Dioxide 34 H (22-30) mmol/L Anion Gap 6.5 (5-15) MEQ/L BUN 10 (7-17) mg/dL Creatinine 0.67 (0.52-1.04) mg/dL Estimated GFR > 60.0 ML/MIN Glucose 75 (74-106) mg/dL Calcium 8.3 L (8.4-10.2) mg/dL Slides for Path Review YES Micro Results-Entire Visit: Microbiology 06/29/22 14:48 Abscess Culture - Final Head Methicillin Resist Staph Aur 06/30/22 15:38 Anaerobic Culture Result 1 - Final Head Not Reportable Anaerobic Culture Result 2 - Final Not Reportable - Procedures and Test Procedures and Tests throughout Hospitalization: Therapy Orders & Screens 06/29/22 21:12 Oxygen Nasal Cannula 2 lpm Comment: Diagnosis: Scalp abscess/hematoma Respiratory Therapy Assessment DAILY Comment: Diagnosis: Scalp abscess/hematoma 06/29/22 22:18 RT Screen per Nursing Assess ONCE Comment: Protocol Order Physician Instructions: Greater than 3 points order RT Admission Screen Reason For Exam: Triggered on Admission Diagnosis: Scalp abscess/hematoma Diagnosis: Scalp abscess/hematoma Pneumonia: No Home O2: Yes Asthma: Yes CHF: Yes Home CPAP/BIPAP: No Home Nebs/MDI: Yes Total Points: 17 06/30/22 08:00 OT Screen per Nursing Assess ONCE Comment: Protocol Order Physician Instructions: Greater than 3 points order OT Admission Screening Reason For Exam: Triggered on Admission Diagnosis: Scalp abscess/hematoma Open Wound/Cellutlitis/Pressure Ulcers: Yes Acute Fx/ORIF/Change in wt bearing status: No Severe MUSCULOSKELETAL pain: No ADL Dysfunction: Yes: HX Acute CVA w/Hemiparesis/Hemiplegia: Yes: HX Decreased Functional Mobility/Strength: Yes: HX Sprain/Strain: No Acute Post-op Mobility Dysfunction: No Total Points: 14 PT Screen per Nursing Assess ONCE Comment: Protocol Order Physician Instructions: Greater than 3 points order PT Admission Screenin Reason For Exam: Triggered on Admission Diagnosis: Scalp abscess/hematoma Open Wound/Cellutlitis/Pressure Ulcers: Yes Acute Fx/ORIF/Change in wt bearing status: No Severe MUSCULOSKELETAL pain: No ADL Dysfunction: Yes: HX Acute CVA w/Hemiparesis/Hemiplegia: Yes: HX Decreased Functional Mobility/Strength: Yes: HX Sprain/Strain: No Acute Post-op Mobility Dysfunction: No Total Points: 14 ST Screen per Nursing Assess ONCE Comment: Protocol Order Physician Instructions: Greater than [address] Admission Screening Reason For Exam: Triggered on Admission Diagnosis: Scalp abscess/hematoma CVA/Dyshpagia/Aphasia: Yes: HX Cognitive Deficits: No Dehydration/Nutrition Deficit: No Reflux: No Oral-Motor Difficulties: Yes: HX Pneumonia: No Senior Living Resident: Yes Total Points: 13 06/30/22 15:37 PT Clarification Order ROUTINE Comment: Physician Instructions: Reason For Exam: SCALP ABCESS, HEMATOMA PT Clarification: EVAL AND TREAT FOR WOUND CARE POSSIBLE WOUND VAC PER DR OTOOLE 06/30/22 15:41 PT Eval & Treat (MD Order) ONCE Reason for Eval:: ABCESS REMOVAL POSSIBLE WOUND VAC Diagnosis: Scalp abscess/hematoma Discharge Exam General Appearance: no apparent distress Respiratory Exam: normal breath sounds, lungs clear, No respiratory distress Cardiovascular Exam: regular rate/rhythm, normal heart sounds Gastrointestinal/Abdomen Exam: soft, No tenderness, No mass Skin Exam: other (iodoform gauze packing in place in scalp, no surrouding tori thmea or fluctuance. scant serous drainage) Wound Assessment: Skin/Wound Assessment Wound/Incision Assessment Start: 06/29/22 22:18 Text: Status: Active Freq: Q6H Protocol: Document 07/02/22 08:00 GARCÍA (Rec: 07/02/22 08:34 [email or web address] [id number]) Wound/Incision Assessment Posterior right side of head Wound Assessment Shift Assessment Wound Type Incision Wound Stage Non Pressure Wound Dressing Status Dry & Intact Packing Type Gauze Roll Primary Dressing Non-Adherent Gauze Pads Secondary Dressing Gauze Roll/Wrap Comment DRESSING CLEAN, DRY AND INTACT Final Diagnosis/Problem List - Final Discharge Diagnosis/Problem (1) Scalp abscess Current Visit: Yes Status: Acute Assessment & Plan: MRSA sens to clindamycin, will continue po on discharge Code(s): L02.811 - CUTANEOUS ABSCESS OF HEAD [ANY PART, EXCEPT FACE] (2) Urinary tract infection due to Proteus Current Visit: Yes Status: Acute Assessment & Plan: complicated due to pcn allergy, will rx ertapenem 1g IM daily x 7 days on discharge Code(s): N39.0 - URINARY TRACT INFECTION, SITE NOT SPECIFIED; B96.4 - PROTEUS (MIRABILIS) (MORGANII) CAUSING DIS CLASSD ELSWHR (3) Scalp hematoma Current Visit: Yes Status: Acute Code(s): S00.03XA - CONTUSION OF SCALP, INITIAL ENCOUNTER (4) Atrial fibrillation Current Visit: Yes Status: Acute Code(s): I48.91 - UNSPECIFIED ATRIAL FIBRI LLATION (5) Aphasia as late effect of cerebrovascular accident (CVA) Current Visit: Yes Status: Chronic Code(s): I69.320 - APHASIA FOLLOWING CEREBRAL INFARCTION (6) Accidental fall Current Visit: No Status: Acute Code(s): W19.XXXA - UNSPECIFIED FALL, INITIAL ENCOUNTER - Discharge Disposition: DC TO [facility] Condition: Stable Prescriptions: New clindamycin HCL [Cleocin HCl] 300 mg PO QID #28 cap Ertapenem Sodium [Ertapenem] 1 gm IM DAILY 7 Days #7 Continue Allopurinol 100 mg [Zyloprim 100 mg] 100 mg PO DAILY Spironolactone 25 mg [Aldactone 25 MG] 25 mg PO DAILY Fluticasone/Salmeterol [Advair Hfa 230-21 Mcg Inhaler] 2 puff IH DAILY Non-Formulary Drug [Non-Formulary Item] 1 each TOP TIDPRN PRN PRN Reason: Pain Sertraline HCl 50 mg [Zoloft 50 mg Tablet] 50 mg PO HS Acetaminophen 325 mg [Tylenol 325 mg] 650 mg PO Q6H PRN PRN Reason: Pain Acetaminophen 325 mg [Tylenol 325 mg] 650 mg PO Q6H PRN PRN PRN Reason: Fever Levothyroxine Sodium 50 Mcg [Synthroid 50 Mcg] 50 mcg PO DAILY Simvastatin 10 mg [Zocor 10MG] 5 mg PO DAILY Pregabalin 50 mg [Lyrica 50MG] 150 mg PO DAILY Sennosides/Docusate Sodium [Senna Plus 8.6-50 mg Softgel] 2 tab PO DAILY Non-Formulary Drug [Non-Formulary Item] 1 each PO Q6H PRN PRN PRN Reason: mouth pain Nystatin Cream 30 gm [Nystop 30 gm Cream] 30 gm TP Q8H PRN PRN PRN Reason: gaulding Multivitamin [Multivitamins] 1 each PO DAILY Metoprolol Tartrate 25 mg [Lopressor 25MG Tab] 25 mg PO BID Furosemide 20 mg [Lasix 20 mg] 20 mg PO DAILY Hydrocortisone 2.5% 30 gm [Anusol-Hc 2.5% Cream 30 gm] 30 gm TP BID PRN PRN PRN Reason: allergic contact Hydrocortisone 2.5% 30 gm [Anusol-Hc 2.5% Cream 30 gm] 30 gm TP BID Apixaban [Eliquis 5 mg Tablet] 5 mg PO BID Bisacodyl 10 mg [Dulcolax 10 MG SUPP] 10 mg RC Q24H PRN PRN Reason: Constipation Cyclobenzaprine HCl 10 mg [Cyclobenzaprine 10 MG] 10 mg PO HS Follow up with: JESSICA OTOOLE [COURTESY STAFF] - 3 weeks (PATIENT TO FOLLOW UP IN 3 WEEKS )
[2022-07-02] MEDS: Senokot-S Tablet PO SCH (09:21)
[2022-07-02] MEDS: ELIQUIS 2.5 MG TABLET PO SCH (09:22)
[2022-07-02] MEDS: SYNTHROID 50 MCG PO SCH (09:22)
[2022-07-02] MEDS: LASIX 20 MG PO SCH (09:22)
[2022-07-02] MEDS: Zocor 10MG PO SCH (09:22)
[2022-07-02] MEDS: Aldactone 25 MG PO SCH (09:22)
[2022-07-02] MEDS: Lopressor 25MG Tab PO SCH (09:22)
[2022-07-02] MEDS: Protonix 40MG Tablet PO SCH (09:22)
[2022-07-02] MEDS: ZYLOPRIM 100 MG PO SCH (09:22)
[2022-07-02] MEDS: LYRICA 150MG PO SCH (09:22)
[2022-07-02 10:57] VITALS: BP 106/63; PULSE 76; O2SAT 92
== END 2022-07-02 10:40 ==
LOC: ED 14:28 → MED SURG 20:17
PROVIDERS: ADMIT Family Medicine; ATTEND Family Medicine
DX: L02.811 Cutaneous abscess of head [any part, except face] (principal); N39.0 Urinary tract infection, site not specified; B96.4 Proteus (mirabilis) (morganii) as the cause of diseases classified elsewhere; S00.03XA Contusion of scalp, initial encounter; I48.91 Unspecified atrial fibrillation; I69.320 Aphasia following cerebral infarction; I50.9 Heart failure, unspecified; W18.30XD Fall on same level, unspecified, subsequent encounter; R11.0 Nausea; Z79.01 Long term (current) use of anticoagulants; Z79.899 Other long term (current) drug therapy; Z20.828 Contact with and (suspected) exposure to other viral communicable diseases
CPT/HCPCS: 00300; 0241U; 10140; 36000; 36415; 70450; 80048; 80053; 85025; 87070; 87075; 87077; 87186; 94640; 94760; 96372; 97161; 99285; 93268; J1885; J2250; J2270; J2370; J2405; J2704; J3010; A9270-GY; G0378